=== PATIENT | female | born 1965 | race Caucasian/White ===

== ENCOUNTER 2024-10-08 12:33 | Outpatient (AMB) | payer BC, SELFPAY ==
--- NOTE | 2024-10-08 12:46 | MHC.OFFVIS ---
Vital Signs 10/08/24 12:47 Height 5 ft 9 in Weight 273 lb 6 oz BMI 40.4 BP 118/64 Blood Pressure Location Lt brachial Position Sitting Pulse 83 Pulse Source Pulse Oximeter Pulse Oximetry (%) 99 Oxygen Delivery Method Room Air Intake Visit Reasons: Arthritis Intake Note: Patient presents with right shoulder pain today. She states it's been going on for a year, had an injection in March. Allergies environmental allergies Allergy (Mild, Verified 10/08/24 12:51) sneezing, itchy, watery eyes Latex, Natural Rubber Allergy (Mild, Verified 10/08/24 12:51) Rash dust mites Allergy (Mild, Uncoded 10/08/24 12:51) Sneezing molds Allergy (Unknown, Uncoded 10/08/24 12:51) Unknown HPI HPI Arthritis: Details: She just completed physical [facility] for [facility]. She continues to have pain with ADLs. 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 She was also going to physical therapy for knee strengthening with benefit. She is taking Tylenol with minimal benefit. She was prescribed nabumetone from Dr. azar but it was ineffective. She reports that she has history of gastric sleeve surgery with prior EGD revealing lesions in the esophagus related to gastritis. [facility] Medical History (Updated 10/08/24 @ 13:21 by Brett Mckeon MD) delivery delivered Surgical History (Updated 10/08/24 @ 12:52 by Maggie Sanchez CMA) H/O: hysterectomy History of total right knee replacement History of total left knee replacement S/P gastric sleeve procedure S/P cholecystectomy H/O colonoscopy H/O hernia repair Family History (Updated 10/07/24 @ 15:35 by Maggie Sanchez CMA) Father Colon cancer Mother Osteoarthritis Sister Colon cancer Social History (Updated 10/07/24 @ 15:34 by Maggie Sanchez CMA) Household Members: Spouse and Children Alcohol intake: never Patient Tobacco Use Status: Never used Tobacco Review of Systems Const All systems reviewed & are unremarkable except as noted in HPI and below Physical Exam Vital Signs: Last Vital Signs Pulse 83 10/08/24 12:47 BP 118/64 10/08/24 12:47 Pulse Ox 99 10/08/24 12:47 Oxygen Delivery Method Room Air 10/08/24 12:47 BMI result Body Mass Index 40.4 Const Other: General: Comfortable Skin: No lesions seen MSK: Tenderness to palpate right shoulder with active abduction 90 degrees and limited full internal rotation and external rotation. She has shoulder abduction 100 degrees with passive range of motion and is able to internally rotate and externally rotate but with pain. Left shoulder has normal range of motion with no pain. No joint effusion present. Office Procedures AMB Joint Injection/Aspiration Joint Injection/Aspiration Details: Right shoulder joint Prep: site was prepped using aseptic technique Injected: 40 mg of, Kenalog, with 1 mL of and 1% plain lidocaine Procedure: The patient tolerated the procedure well. Postprocedure protocol was discussed with patient. Coding 80877 - Large joint Procedure code (CPT) selection complete Office Meds lidocaine (PF) 10 mg/mL (1 %) injection solution Performing Provider: Brett Mckeon MD Performing Location: [facility] Administered by: Brett Mckeon MD on 10/08/24 13:20 Dose Route Admin Location Dispensed Lot Number Expiration Date [facility] Supervisor Irrigation 10 mg Infiltration 2 mL [id number] [facility] Kenalog 40 mg/mL suspension for injection Performing Provider: Brett Mckeon MD Performing Location: [facility] Administered by: Brett Mckeon MD on 10/08/24 13:20 Dose Route Admin Location Dispensed Lot Number Expiration Date [facility] Supervisor Irrigation 40 mg intra-articular 1 mL [id number] [employer] Assessment & Plan Assessment & Plan (1) Right shoulder pain: Comment: Due to glenohumeral joint osteoarthritis. Recurrent. Last cortisone injection only lasted her 2 months. She has failed PT. she continues to have uncontrolled pain on Tylenol and with limited range of motion. She is willing to try intra-articular cortisone injection again. Code(s): M25.511 - Pain in right shoulder Category: Medical Qualifiers: Chronicity: chronic Qualified Code(s): M25.511 - Pain in right shoulder; G89.29 - Other chronic pain Plan: She received cortisone injection to right shoulder Avoid oral NSAIDs in setting of gastric sleeve surgery Continue Tylenol as needed Letter for work given to patient to excuse her this weekend We discussed modifying daily tasks and work-related tasks to reduce repetition including carrying objects for work Continue exercises learned from physical therapy daily Recommend considering swimming/aquatic therapy I ordered right shoulder x-ray to evaluate for joint pathology worsening Return to clinic in 3 months (2) Osteoarthritis of right glenohumeral joint: Code(s): M19.011 - Primary osteoarthritis, right shoulder Category: Medical Plan: See above Orders: Orders XR shoulder RT min 2V Today M25.511 - Pain in right shoulder AMB Joint Injection/Aspiration Today M19.011 - Primary osteoarthritis, right shoulder Medications: New lidocaine (PF) 10 mg Infiltration ONCE 1 mL 0RF M19.011 - Primary osteoarthritis, right shoulder Kenalog (triamcinolone acetonide) 40 mg intra-articular ONCE 1 mL 0RF NS M19.011 - Primary osteoarthritis, right shoulder Coding Level of Care Code Est Pt Level 3 (01150) Complex EM visit Add On G2211 Diagnoses Chronic right shoulder pain M25.511; G89.29 Chronicity: chronic Osteoarthritis of right glenohumeral joint M19.011 CPT Codes Coding - 01223 Large joint: 22968 - Large joint ([id number])
[2024-10-08 12:47] VITALS: BP 118/64; PULSE 83; O2SAT 99; BMI 40.4
== END 2024-10-08 13:18 | disposition home or self-care (01) ==
PROVIDERS: Visit Provider Internal Medicine Rheumatology
DX: M25.511 Pain in right shoulder (principal); G89.29 Other chronic pain; M19.011 Primary osteoarthritis, right shoulder
CPT/HCPCS: 20610; 99213

== ENCOUNTER → 2024-10-08 12:33 | Outpatient (BNVA) | payer BC, SELFPAY | PROVIDERS: Visit Provider Internal Medicine Rheumatology | DX: M25.511 Pain in right shoulder (principal); G89.29 Other chronic pain; M19.011 Primary osteoarthritis, right shoulder | CPT/HCPCS: 20610; J2003; J3300 ==

== ENCOUNTER 2024-10-11 16:46 | Outpatient (REF) | payer BC, SELFPAY ==
--- NOTE | ~2024-10-11 | XR_ITS ---
EXAMINATION: XR SHOULDER 2 OR MORE VIEWS RIGHT HISTORY: M25.511 - Pain in right shoulder COMPARISON: There are no prior studies available for comparison. FINDINGS: Six views of the right shoulder are submitted. Osseous mineralization is normal. There is no fracture or dislocation. The glenohumeral joint is maintained. There is moderate osteoarthritis of the AC joint, with joint space narrowing and osteophyte formation. There is a calcified granuloma in the right upper lobe. XR/XR shoulder RT min 2V IMPRESSION: Moderate osteoarthritis of the AC joint. Electronically signed by: Hi Garcia MD 10/14/2024 08:55 AM [facility]
--- OUTSIDE RECORDS SUMMARY | 2024-10-11 16:51 | XMS_ITS ---
Author Organization [facility] Address [address] [place] [address] Care Team Providers Care Print Graphic Designer Name Role Phone LASHAWN SMALLS Unavailable [phone] KEENAN MEDINA [phone] Encounters Encounter Location Date Provider Diagnosis [facility] [address] [place] [address] 10/10/2024 KEENAN MEDINA PLAN OF TREATMENT Next Appt Details Provider Name:LASHAWN SLIM, 10/31/2024 10:45:00 AM, [address], [place], [address], Progress Notes * FERNANDA WEBBOB:[birth year] (59 yo F)Acc No.[id number]:10/10/2024 Patient:??FERNANDA WEBB Provider:??Keenan Medina MD :1965?Age:59 Y?Sex:Fe male Date:10/10/2024 Address:[address] [place], [place] [phone] Subjective: * Chief Complaints: * ? * Medical History:?? Objective: Assessment: Plan: * Treatment: * Images: Billing Information: * Visit Code:?? * Procedure Codes:?? * Sign off status: Pending * Provider:??Keenan Medina MD Date:??10/10
--- OUTSIDE RECORDS SUMMARY | 2024-10-11 16:52 | XMS_ITS | Encounter Summary ---
Author Organization [facility] Address [address] [place] [address] Care Team Providers Care Absorption Plant Operator Helper Name Role Phone Rae Medina MD Primary Care Provider [phone] Encounter Details Date Type Department Care Team (Late st Contact Info) Description 10/10/2024 Telephone Bariatric Surgery - [place] [address] [address] Shireen Foreman, RN Social History Tobacco Use Types Packs/Day Years Used Date Smoking Tobacco: Never Smokeless Tobacco: Never Alcohol Use Standard Drinks/Week Comments No 0 (1 standard drink = 0.6 oz pur e alcohol) Sex and Gender Information Value Date Recorded Sex Assigned at Not on file Gender Identity Not on file Sexual Orientation Not on file documented as of this encounter Progress Notes * Shireen Foreman RN - 10/10/2024 1:57 PM EST Called patient to ask if she ywould like to have an office visit with one of our providers. She hada sleeve gastrectomy 02/2020 and has not been seen in our office since 07/2023. Voicemail left asking patient to call us back if she wishes to schedule an office visit. documented in this encounter Plan of Treatment Upcoming Encounters Date Type Department Care Team (Late Contact Info) Description 01/07/2025 4:00 PM EDT Office Visit Bariatric Surgery [facility] [address] [address] Zohreh Griggs PA [address] [phone] documented as of this encounter Visit Diagnoses Not on filedocumented in this encounter Care Teams Absorption Plant Operator Helper Relationship Specialty Start Date End Date Rae Medina MD PCP - General Internal Medicine 11/26/20 documented as of this encounter
--- OUTSIDE RECORDS SUMMARY | 2024-10-11 16:52 | XMS_ITS ---
Author Organization [facility] Address [address] [place] [address] Care Team Providers Care Psych Social Worker Name Role Phone LASHAWN SMALLS Unavailable [phone] KEENAN MEDINA [phone] Encounters Encounter Location Date Provider Diagnosis [facility] [address] [place] [address] 10/03/2024 KEENAN MEDINA PLAN OF TREATMENT Next Appt Details Provider Name:LASHAWN SLIM, 10/31/2024 10:45:00 AM, [address], [place], [address], Progress Notes * FERNANDA WEBBOB:[birth year] (59 yo F)Acc No.[id number]:10/03/2024 Patient:??FERNANDA WEBB Provider:??Keenan Medina MD :1965?Age:59 Y?Sex:Fe male Date:10/03/2024 Address:[address] [place], [place] [phone] Subjective: * Chief Complaints: * ? * Medical History:?? Objective: Assessment: Plan: * Treatment: * Images: Billing Information: * Visit Code:?? * Procedure Codes:?? * Sign off status: Pending * Provider:??Keenan Medina MD Date:??10/03
--- OUTSIDE RECORDS SUMMARY | 2024-10-11 16:52 | XMS_ITS | Clinical Summary ---
Author Organization [facility] Address [address] [place] [address] Care Team Providers Care Electric Track Switch Maintainer Name Role Phone Rae Medina MD Primary Care Provider [phone] Encounters Date Type Department Care Team Description 10/10/2024 Telephone Bariatric Surgery [address] [place] [address] Shireen Foreman RN from Last 3 Months Surgical History Surgery Date Site/Laterality Comments SECTION PROCEDURE: HISTORICAL CARPAL TUNNEL RELEASE PROCEDURE: HISTORICAL CARPAL TUNNEL REL CHOLECYSTECTOMY PROCEDURE: HISTORICAL CHOLECYSTECTOMY OTHER SURGICAL HISTORY PROCEDURE: HISTORY OTHER; COMMENT: core biopsy COLONOSCOPY 01/03/2019 PROCEDURE: HISTORICAL COLONOSCOPY COLONOSCOPY 10/22/2015 PROCEDURE: HISTORICAL COLONOSCOPY; COMMENT: Colon cancer ion first degree relatives ESOPHAGOGASTRODUODENOSCOPY 01/03/2019 PROCEDURE: MD ESOPHAGOGASTRODUODENOSCOPY TRANSORAL DIAGNOSTIC OTHER SURGICAL HISTORY PROCEDURE: HISTORY OTHER; COMMENT: REPAIR INCISIONAL HERNIA KNEE SURGERY 01/11/2021 Left PROCEDURE: HISTORICAL KNEE SURGERY Medical History Medical History Date Comments Asthma DX:Asthma Hyperlipidemia 03/14/2019 DX:Hyperlipidemi a Allergic rhinitis 03/14/2019 DX:Allergic rh initis Anxiety and depression 03/14/2019 DX:Anxiet y and depression Class 3 severe obesity due t o excess calories with serious comorbidity and body mass index (BMI) of 50.0 to 59.9 in adult ([facility]) 03/07/2019 DX:Class 3 severe obesity du e to excess calories with serious comorbidity and body mass index (BMI) of 50.0 to 59.9 in adult ([facility]) GERD (gastroesophageal reflux disease) 03/14/2019 DX:GERD (gastroesophageal reflux disease) Osteoarthritis of knees, bilateral 03/14/2019 DX:Osteoarthritis of knees, bilateral Pre-diabetes 03/14/2019 DX:Pre-diabetes Change in bowel habits 03/14/2019 DX:Change in bowel habits; COMMENT: 11/2018. Normal colonoscopy Family History Medical History Relation Name Comments Alzheimer's disease Father Colon cancer Father Other: Other Father Other: heart disease Mother FRANCOIS disease Other Hypertension, K nee pain Seizures Sister 1 Colon cancer Sister 2 Relation Name Status Comments Father Mother Other Sister 1 Sister 2 Social History Tobacco Use Types Packs/Day Years Used Date Smoking Tobacco: Never Smokeless Tobacco: Never Alcohol Use Standard Drinks/Week Comments No 0 (1 standard drink = 0.6 oz pur e alcohol) Sex and Gender Information Value Date Recorded Sex Assigned at Not on file Gender Identity Not on file Sexual Orientation Not on file Obstetrics History Last Filed Vital Signs Vital Sign Reading Time Taken Comments Blood Pressure 121/73 07/25/2023 8:10 AM EST Pulse 79 07/25/2023 8:10 AM EST Temperature - - Respiratory Rate - - Oxygen Saturation - - Inhaled Oxygen Concentration - - Weight 121 kg (266 lb 1 oz) 07/25/2023 8:[address] Height 170.2 cm (5' 7 ) 07/25/2023 8:10 AM EST Body Mass Index 41.67 07/25/2023 8:10 AM EST Plan of Treatment Upcoming Encounters Date Type Department Care Team (Late st Contact Info) Description 01/07/2025 4:00 PM EDT Office Visit Bariatric Surgery - [place] [address] [facility] [address] [place] [address] Zohreh Griggs PA 271 [facility] [address] [place] [address] Health Maintenance Due Date Last Done Comments Breast Cancer Screening 1965 Pneumococcal Vaccine: Pediat rics (0 to 5 Years) and At-Risk Patients (6 to 64 Years) (1 of 2 - PCV) 1970 DTaP,Tdap,and Td Vaccines (1 - Tdap) 1983 Cervical Cancer Screening: P ap Smear 1985 Zoster Vaccines (1 of 2) 2014 Cholesterol Screening (Lipid Panel) 08/27/2022 Colorectal Cancer Screening: Colonoscopy 08/27/2022 Depression Screening 08/27/2022 HIV Screening 08/27/2022 Hepatitis C Screening 08/27/2022 Social Influencers of Health Screening 08/27/2022 COVID-19 Vaccine (1 - 2023-2 5 season) 2024 Influenza Vaccine (#1) 2024 RSV Immunization Patients 60 + Years Old (1 - Risk 60-74 years 1-dose series) 2024 HIB Vaccines Aged Out No longer eligi ble based on patient's age to complete this topic HPV Vaccines Aged Out No longer eligi ble based on patient's age to complete this topic Hepatitis A Vaccines Aged Out No long er eligible based on patient's age to complete this topic Hepatitis B Vaccines Aged Out No long er eligible based on patient's age to complete this topic IPV Vaccines Aged Out No longer eligi ble based on patient's age to complete this topic MMR Vaccines Aged Out No longer eligi ble based on patient's age to complete this topic Meningococcal ACWY Vaccine Aged Out N o longer eligible based on patient's age to complete this topic RSV Immunization Patients Un fiona 20 months Aged Out No longer eligible b ased on patient's age to complete this topic Varicella Vaccines Aged Out No longer eligible based on patient's age to complete this topic Care Teams Electric Track Switch Maintainer Relationship Specialty Start Date End Date Rae Medina MD PCP - General Internal Medicine 11/26/20
--- OUTSIDE RECORDS SUMMARY | 2024-10-11 16:52 | XMS_ITS ---
Author Organization [facility] Address [address] [place] [address] Care Team Providers Care Delivery Stock Clerk Name Role Phone LASHAWN SMALLS Unavailable [phone] MEDINAKEENAN STINSON Unavailable [phone] REASON FOR VISIT Patient is here for tirzepatide 5mg. Patient signed consent and left the office in stable condition MEDICATIONS Medication SIG (Take, Route, Frequency, Duration) Notes Start Date End Date Status Fish Oil 1000 MG 1 capsule Orally Onc e a day Active Nystatin 724686 UNIT/ML 4 mL Mouth/Throa t Four times a day for 14 days 12/21/2023 Active Fluconazole 100 MG 1 tablet Orally deni y for 10 days 12/21/2023 Active buPROPion HCl ER (XL) 300 mg TAKE 1 TABLET DAILY IN THE MORNING Active Montelukast Sodium 10 mg TAKE 1 TABLET DAILY Active Flonase Active DULoxetine HCl 20 mg TAKE 1 CAPSULE TWIC E A DAY Active Albuterol Sulfate (2.5 MG/3ML) 0.083% 3 mL Inhalation NEEDED for 30 days Active Pantoprazole Sodium 40 MG 1 tablet Orall y Once a day Active Tylenol Active Zepbound 5 MG/0.5ML 0.5 mL Subcutaneous weekly for 30 days 08/20/2024 Active Oseltamivir Phosphate 75 MG 1 capsule Or ally Twice a day for 5 days 09/20/2024 Active guaiFENesin ER 600 MG 1 tablet as needed Orally every 12 hrs for 10 days 09/20/2024 Active Benzonatate 200 MG 1 cap Orally Three t imes a day for 10 days 09/20/2024 Active Triamcinolone Acetonide 0.025 % 1 application Externally TWICE DAILY for 30 days 08/20/2024 Active Nabumetone 500 MG Oral for 45 Days Active Encounters Encounter Location Date Provider Diagnosis [facility] [address] [place] [address] 09/26/2024 KEENAN MEDINA PLAN OF TREATMENT Next Appt Details Provider Name:LASHAWN SMALLS, 10/31/2024 10:45:00 AM, [address], [place], [address], MEDICATIONS ADMINISTERED Medication Instructions Date of Administration Dosage Notes Tirzepatide 09/26/2024 5 mg Progress Notes * FERNANDA WEBBEDOB:[birth year] (59 yo F)Acc No.[id number]:09/26/2024 Patient:??FERNANDA WEBB Provider:??Keenan Medina MD :1965?Age:59 Y?Sex:Fe male Date:09/26/2024 Address:[address] [place], [place] [phone] Subjective: * Chief Complaints: * ?1. Patient is here for tirzepatide 5mg. Patient signed consent and left the office in stable condition. * Medical History:?? * Medications:??Taking Flonase , Taking Tylenol , Taking Pantoprazole Sodium 40 MG Tablet Delayed Release 1 tablet Orally Once a day , Taking Albuterol Sulfate (2.5 MG/3ML) 0.083% Nebulization Solution 3 mL Inhalation NEEDED , Taking DULoxetine HCl 20 mg Capsule Delayed Release Particles TAKE 1 CAPSULE TWICE A DAY , Taking Fluconazole 100 MG Tablet 1 tablet Orally daily , Taking Nystatin 787204 UNIT/ML Suspension 4 mL Mouth/Throat Four times a day , Taking Fish Oil 1000 MG Capsule 1 capsule Orally Once a day , Taking Montelukast Sodium 10 mg Tablet TAKE 1 TABLET DAILY , Taking buPROPion HCl ER (XL) 300 mg Tablet Extended Release 24 Hour TAKE 1 TABLET DAILY IN THE MORNING , Taking Nabumetone 500 MG Tablet Oral , Taking Zepbound 5 MG/0.5ML Solution Auto-injector 0.5 mL Subcutaneous weekly , Taking Triamcinolone Acetonide 0.025 % Cream 1 application Externally TWICE DAILY , Taking Benzonatate 200 MG Capsule 1 cap Orally Three times a day As needed cough, Taking guaiFENesin ER 600 MG Tablet Extended Release 12 Hour 1 tablet as needed Orally every 12 hrs , Taking Oseltamivir Phosphate 75 MG Capsule 1 capsule Orally Twice a day Objective: Assessment: Plan: * Treatment: * Therapeutic Injections:? Tirzepatide : 5 mg (Route: Subcutaneous) given by Oswaldo Salomon on subcutaneus * Images: Billing Information: * Visit Code:?? * Procedure Codes:?? * Sign off status: Pending * Provider:??Keenan Medina MD Date:??09/26
== END 2024-10-11 16:47 | disposition home or self-care (01) ==
LOC: HO.XRAY 16:46
PROVIDERS: Visit Provider Internal Medicine Rheumatology
DX: M25.511 Pain in right shoulder (principal)
CPT/HCPCS: 73030

== ENCOUNTER → 2024-10-11 16:52 | Outpatient (BNV) | payer BC, SELFPAY | PROVIDERS: Visit Provider Radiology Diagnostic Radiology | DX: M19.011 Primary osteoarthritis, right shoulder (principal) | CPT/HCPCS: 73030 ==

== ENCOUNTER 2025-01-07 12:37 | Outpatient (AMB) | payer BC, SELFPAY ==
--- NOTE | 2025-01-07 12:37 | A.OFFVIS_ITS ---
Vital Signs 01/07/25 12:38 Height 5 ft 9 in Weight 254 lb 10.142 oz BMI 37.6 BP 108/74 Blood Pressure Location Lt brachial Position Sitting Pulse 93 Pulse Source Pulse Oximeter Pulse Oximetry (%) 97 Oxygen Delivery Method Room Air Intake Visit Reasons: 3 mo follow up Intake Note: Patient presents with Arthritis. Accompanied by: Self / Same As Patient Allergies environmental allergies Allergy (Mild, Verified 01/07/25 12:38) sneezing, itchy, watery eyes Latex, Natural Rubber Allergy (Mild, Verified 01/07/25 12:38) Rash dust mites Allergy (Mild, Uncoded 10/08/24 12:51) Sneezing molds Allergy (Unknown, Uncoded 10/08/24 12:51) Unknown HPI HPI 3 mo follow up: Details: Pain resolved with us cortisone injection. She seems at the pool at least twice a week at the gym. She has not been consistent with PT exercises but when pain reoccur she does not exercise learned from PT in the past. She has been using less Tylenol. [facility] Medical History delivery delivered Surgical History H/O: hysterectomy History of total right knee replacement History of total left knee replacement S/P gastric sleeve procedure S/P cholecystectomy H/O colonoscopy H/O hernia repair Family History Father Colon cancer Mother Osteoarthritis Sister Colon cancer Social History Household Members: Spouse and Children Alcohol intake: never Patient Tobacco Use Status: Never used Tobacco Review of Systems Const All systems reviewed & are unremarkable except as noted in HPI and below Physical Exam Vital Signs: Last Vital Signs Pulse 93 01/07/25 12:38 BP 108/74 01/07/25 12:38 Pulse Ox 97 01/07/25 12:38 Oxygen Delivery Method Room Air 01/07/25 12:38 BMI result Body Mass Index 37.6 Const Other: General: Comfortable Skin: No lesions seen MSK: normal range of motion of bilateral shoulders. No tenderness on palpation. No joint effusion present. Assessment & Plan Assessment & Plan (1) Right shoulder pain: Comment: Due to glenohumeral joint osteoarthritis. Recurrent. Resolved with last cortisone injection. She has failed PT and Tylenol in the past. Code(s): M25.511 - Pain in right shoulder Category: Medical Qualifiers: Chronicity: chronic Qualified Code(s): M25.511 - Pain in right shoulder; G89.29 - Other chronic pain Plan: Avoid oral NSAIDs in setting of gastric sleeve surgery Continue Tylenol as needed Continue exercises learned from physical therapy daily and stretching before using the pool Return to clinic as needed. She will call office if pain returns for urgent appointment for cortisone injection (2) Osteoarthritis of right glenohumeral joint: Code(s): M19.011 - Primary osteoarthritis, right shoulder Category: Medical Plan: See above Coding Level of Care Code Est Pt Level 3 (57439) Complex EM visit Add On G2211 Diagnoses Chronic right shoulder pain M25.511; G89.29 Chronicity: chronic Osteoarthritis of right glenohumeral joint M19.011
[2025-01-07 12:38] VITALS: BP 108/74; PULSE 93; O2SAT 97; BMI 37.6
--- OUTSIDE RECORDS SUMMARY | 2025-01-07 14:58 | XMS_ITS ---
Author Organization [facility] Address [address] [place] [address] Care Team Providers Care Warrant Clerk Name Role Phone LASHAWN SMALLS Unavailable [phone] Encounters Encounter Location Date Provider Diagnosis [facility] [address] [place] [address] 10/31/2024 LASHAWN SMALLS PLAN OF TREATMENT No Information Progress Notes * FERNANDA WEBBOB:[birth year] (59 yo F)Acc No.[id number]:10/31/2024 Patient:??FERNANDA WEBB Provider:??LASHAWN SMALLS PA-C :1965?Age:59 Y?Sex:Fe male Date:10/31/2024 Address:[address] [place], [place] [phone] Subjective: * Chief Complaints: * ? * Medical History:?? Objective: Assessment: Plan: * Treatment: * Images: Billing Information: * Visit Code:?? * Procedure Codes:?? * Sign off status: Pending * Provider:??LASHAWN SMALLS PA-C Date:??
--- OUTSIDE RECORDS SUMMARY | 2025-01-07 14:58 | XMS_ITS ---
Author Organization [facility] Address [address] [place] [address] Care Team Providers Care Oil Field Roustabout Name Role Phone SLIMSCOTTY MannEN Unavailable [phone] KEENAN MEDINA [phone] Encounters Encounter Location Date Provider Diagnosis [facility] [address] [place] [address] 10/24/2024 KEENAN MEDINA PLAN OF TREATMENT No Information Progress Notes * FERNANDA WEBBEDOB:[birth year] (59 yo F)Acc No.[id number]:10/24/2024 Patient:??FERNANDA WEBB Shara Provider:??Keenan Medina MD :1965?Age:59 Y?Sex:Fe male Date:10/24/2024 Address:[address] [place], [place] [id number] Subjective: * Chief Complaints: * ? * Medical History:?? Objective: Assessment: Plan: * Treatment: * Images: Billing Information: * Visit Code:?? * Procedure Codes:?? * Sign off status: Pending * Provider:??Keenan Medina MD Date:??10/24
--- OUTSIDE RECORDS SUMMARY | 2025-01-07 14:59 | XMS_ITS | Patient Health Record ---
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 Prediabetes: 5.7 - 6.4 Diabetes: >6.4 Glycemic control for adults with diabetes: <7.0 Vitamin [id number] Reviewed date:08/19/2024 08:02:50 AM Interpretation: Performing Lab:[facility], [address] [facility], [place], Phone - [phone], Director - Delladry Notes/Report: Vitamin B12 963 675-8219 pg/mL Urinalysis, Complete-[id number] Reviewed date:08/19/2024 08:02:58 AM Interpretation: Performing Lab:[facility], [address] [place] [address], Phone - [phone], Director - MDJodry Notes/Report: Specific [place] 1.028 1.005-1.030 pH 5.5 5.0-7.5 Urine-Color Yellow Yellow Appearance Clear Clear WBC Esterase Negative Negative Protein Trace Negative/Trace Glucose Negative Negative Ketones Negative Negative Occult Blood Negative Negative Bilirubin Negative Negative Urobilinogen,Semi-Qn 1.0 0.2-1.0 mg/dL Nitrite, Urine Negative Negative Microscopic Examination Micr oscopic follows if indicated. Microscopic Examination See below: Micr oscopic was indicated and was performed. WBC None seen 0 - 5 /hpf RBC None seen 0 - 2 /hpf Epithelial Cells (non renal) 0-10 0 - 10 /hpf Epithelial Cells (renal) Casts None seen None seen /lpf Cast Type Crystals Crystal Type Mucus Threads Bacteria None seen None seen/Few Yeast Present None seen Trichomonas Comment CBC With Differential/Platel et-[id number] Reviewed date:08/19/2024 08:02:58 AM Interpretation: Performing Lab:[facility], [address] [facility], [place], Phone - [phone], Director - Isa Notes/Report: WBC 4.7 3.4-10.8 x10E3/uL Effective August 19, 2024 profile [id number] WBC will be made non-orderable as a stand-alone order code. RBC 4.40 3.77-5.28 x10E6/uL Hemoglobin 12.4 11.1-15.9 g/dL Hematocrit 39.3 34.0-46.6 % MCV 89 79-97 fL MCH 28.2 26.6-33.0 pg MCHC 31.6 31.5-35.7 g/dL RDW 13.1 11.7-15.4 % Platelets 233 150-450 x10E3/uL Neutrophils 64 Not Estab. % Lymphs 26 Not Estab. % Monocytes 6 Not Estab. % Eos 3 Not Estab. % Basos 1 Not Estab. % Immature Cells Neutrophils (Absolute) 3.0 1.4-7.0 x10E3/uL Lymphs (Absolute) 1.2 0.7-3.1 x10E3/uL Monocytes(Absolute) 0.3 0.1-0.9 x10E3/uL Eos (Absolute) 0.1 0.0-0.4 x10E3/uL Baso (Absolute) 0.0 0.0-0.2 x10E3/uL Immature Granulocytes 0 Not Estab. % Immature Grans (Abs) 0.0 0.0-0.1 x10E3/uL NRBC Hematology Comments: Vitamin D, [id number] Reviewed date:08/19/2024 08:02:50 AM Interpretation: Performing Lab:[facility] [place], [address] [facility], [place], Phone - [phone], Director - Isa Notes/Report: Vitamin D, 25-Hydroxy 32.5 30.0-100.0 ng/mL Vitamin D deficiency has been defined by the [place] of [employer] and an Endocrine Society practice guideline as a level of serum 25-OH vitamin D less than 20 ng/mL (1,2). The Endocrine Society went on to further define vitamin D insufficiency as a level between 21 and 29 ng/mL (2). 1. IOM ([place] of [employer]). 2010. Dietary reference intakes for calcium and D. [place]: The National Academies Press. 2. Fiordaliza MF, Paige BLACK, Lakeshia BARNES, et al. Evaluation, treatment, and prevention of vitamin D deficiency: an Endocrine Society clinical practice guideline. JCEM. 2010; 96(7):1911-30. Lipid Panel-[id number] Reviewed date:08/19/2024 08:02:50 AM Interpretation: Performing Lab:[facility], [address] [facility], Phone - [phone], Director - Isa Notes/Report: Cholesterol, Total 207 100-199 mg/dL Triglycerides 134 0-149 mg/dL HDL Cholesterol 53 >39 mg/dL VLDL Cholesterol Joao 24 5-40 mg/dL LDL Chol Calc ([facility]) 130 0-99 mg/dL LDL Calc Comment: Comp. Metabolic Panel (14)-3 [id number] Reviewed date:08/19/2024 08:02:58 AM Interpretation: Performing Lab:[facility], [address] [facility], [place], Phone - [phone], Director - Isa Notes/Report: Glucose 88 70-99 mg/dL BUN 14 6-24 mg/dL Creatinine 0.72 0.57-1.00 mg/dL eGFR 96 >59 mL/min/1.73 BUN/Creatinine Ratio 19 9-23 Sodium 143 134-144 mmol/L Potassium 4.7 3.5-5.2 mmol/L Chloride 104 96-106 mmol/L Carbon Dioxide, Total 25 20-29 mmol/L Calcium 9.0 8.7-10.2 mg/dL Protein, Total 6.0 6.0-8.5 g/dL Albumin 4.2 3.8-4.9 g/dL Globulin, Total 1.8 1.5-4.5 g/dL Bilirubin, Total 0.3 0.0-1.2 mg/dL Alkaline Phosphatase 132 44-121 IU/L AST (SGOT) 17 0-40 IU/L ALT (SGPT) 14 0-32 IU/L TSH Rfx on Abnormal to Free [id number] Reviewed date:08/19/2024 08:02:50 AM Interpretation: Performing Lab:[facility], [address], [place], Phone - [phone], Director - Isa Notes/Report: TSH 1.270 0.450-4.500 uIU/mL REASON FOR REFERRAL No Information MEDICATIONS Medication SIG (Take, Route, Frequency, Duration) Notes Start Date End Date Status Fish Oil 1000 MG 1 capsule Orally Onc e a day Active Nystatin 160123 UNIT/ML 4 mL Mouth/Throa t Four times a day for 14 days 12/21/2023 Active Fluconazole 100 MG 1 tablet Orally deni y for 10 days 12/21/2023 Active Flonase Active Zepbound 5 MG/0.5ML 0.5 mL Subcutaneous weekly for 30 days 08/20/2024 Active Nabumetone 500 MG Oral for 45 Days Active buPROPion HCl ER (XL) 300 mg TAKE 1 TABLET DAILY IN THE MORNING Active Montelukast Sodium 10 mg TAKE 1 TABLET DAILY Active DULoxetine HCl 20 mg TAKE 1 CAPSULE TWIC E A DAY Active Oseltamivir Phosphate 75 MG 1 capsule Or ally Twice a day for 5 days 09/20/2024 Active Albuterol Sulfate (2.5 MG/3ML) 0.083% 3 mL Inhalation NEEDED for 30 days Active guaiFENesin ER 600 MG 1 tablet as needed Orally every 12 hrs for 10 days 09/20/2024 Active Pantoprazole Sodium 40 MG 1 tablet Orall y Once a day Active Benzonatate 200 MG 1 cap Orally Three t imes a day for 10 days 09/20/2024 Active Tylenol Active Triamcinolone Acetonide 0.025 % 1 application Externally TWICE DAILY for 30 days 08/20/2024 Active IMMUNIZATIONS Vaccine Route Administration Date Status Comme nts COVID 19 VACCINE IM Intramuscular 07/14/2023 Administered influenza IM Intramuscular 05/30/2023 Administered influenza IM Intramuscular 06/20/2024 Administered SHINGRIX IM Intramuscular 10/19/2023 Administered SOCIAL HISTORY Tobacco Use: Social History Observation Description Date Details (start date - stop date) Never Smoker NA - NA Sex Assigned At : Social History Observation Description Sex Assigned At Unknown Tobacco Use/Smoking Question Answer Notes Are you a nonsmoker Section Notes: Denies tobacco, ETOH, ilicit drugs Lives with and 18 y/o 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 Denies tobacco, ETOH, ilicit drugs Lives with and 18 y/o 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 Denies tobacco, ETOH, ilicit drugs Lives with and 18 y/o 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 Denies tobacco, ETOH, ilicit drugs Lives with and 18 y/o 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 Denies tobacco, ETOH, ilicit drugs Lives with and 18 y/o 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 Denies tobacco, ETOH, ilicit drugs Lives with and 18 y/o 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 Denies tobacco, ETOH, ilicit drugs Lives with and 18 y/o 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 Denies tobacco, ETOH, ilicit drugs Lives with and 18 y/o 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 Denies tobacco, ETOH, ilicit drugs Lives with and 18 y/o 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 Denies tobacco, ETOH, ilicit drugs Lives with and 18 y/o 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 Denies tobacco, ETOH, ilicit drugs Lives with and 18 y/o 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 PROBLEMS Problem Type ICD Code Onset Dates Problem Status W/U Status Risk SNOMED Code Notes Problem Vitamin B12 deficiency anemia, unspecified (D51.9) Active confirmed Vitamin B>12< deficiency anaemia (05214379) Problem Hypothyroidism, unspecified (E03.9) Active confirmed Hypothyroidism (46658921) Problem Vitamin D deficiency, unspecified (E55.9) Active confirmed 09657365 Problem Obesity, unspecified (E66.9) Active confirmed Obesity (698328639) Problem Hyperlipidemia, unspecified (E78.5) Active confirmed Hyperlipidemia (12634117) Problem Insomnia due to other mental disorder (F51.05) Active confirmed Insomnia d isorder related to another mental disorder (20269264) Problem Osteoarthritis of knee, unspecified (M17.9) Active confirmed Osteoarthritis of knee (818601586) Problem Encounter for screening for diabetes mellitus (Z13.1) Active confirmed 124122956 Problem Encounter for screening for lipoid disorders (Z13.220) Active confirmed 977234343 Problem Morbid obesity (E66.01) Active confirmed Morbid obesity (645637436) Problem Hyperlipidemia, unspecified hyperlipidemia type (E78.5) Active confirmed 42554226 Problem Anxiety (F41.9) Active confirmed Anxiet y (02639544) Problem Dizziness (R42) Active confirmed 523689 003 Problem Depression, unspecified depression type (F32.9) Active confirmed Depressive disorder (disorder) (72888828) Problem Annual physical exam (Z00.00) Active confirmed 527387623 Problem Vitamin D deficiency (E55.9) Active confirmed Vitamin D deficiency (41883902) Problem BMI 40.0-44.9, adult (Z68.41) Active confirmed Body mass ind ex 40+ - morbidly obese (670206032) Problem Obesity (BMI 30-39.9) (E66.9) Active confirmed Obesity (114220270) Problem Body mass index [BMI] 32.0-32.9, adult (Z68.32) Active confirmed 512377049 Problem Dyslipidemia (E78.5) Active confirmed Dyslipidemia (815913590) Problem Asthma, unspecified asthma severity, unspecified whether complicated, unspecified whether persistent (J45.909) Active confirmed Asthma without status asthmaticus (97653296) Problem Benign paroxysmal positional vertigo, unspecified laterality (H81.10) Active confirmed 398980434 Problem Obesity, morbid, BMI 40.0-49.9 (E66.01) Active confirmed 675841676 Problem Anemia due to vitamin B12 deficiency, unspecified B12 deficiency type (D51.9) Active confirmed Vitamin B>12< deficiency anaemia (87031242) Problem BMI 31.0-31.9,adult (Z68.31) Active confirmed Body mass index 30.00 to 34.99 (418539362344198) Problem Hyperlipidemia (E78.5) Active confirmed Hyperlipidemia (98024069) VITAL SIGNS Heart Rate 115 /min 09/20/2024 Blood pressure diastolic 78 mm Hg 09/20/2024 Oximetry 95 % 09/20/2024 Height 68 in 09/20/2024 Blood pressure systolic 126 mm Hg 09/20/2024 Weight 267.3 lbs 09/20/2024 BMI 40.64 kg/m2 09/20/2024 Encounters Encounter Location Date Provider Diagnosis [facility] [address] [place] [address] 01/22/[address] [facility] [address] [place] [address] 04/25/[address] [facility] [address] [place] [address] 05/02/[address] [facility] [address] [place] [address] 05/09/[address] [facility] [address] [place] [address] 05/16/[address] [facility] [address] [place] [address] 05/23/[address] [facility] [address] [place] [address] 05/30/[address] [facility] [address] [place] [address] 06/06/[address] [facility] [address] [place] [address] 06/14/[address] [facility] [address] [place] [address] 06/27/[address] [facility] [address] [place] [address] 07/04/[address] [facility] [address] [place] [address] 07/11/[address] [facility] [address] [place] [address] 07/18/[address] [facility] [address] [place] [address] 07/25/[address] [facility] [address] [place] [address] 08/01/[address] [facility] [address] [place] [address] 08/01/[address] [facility] [address] [place] [address] 08/08/[address] [facility] [address] [place] [address] 08/14/[address] [facility] [address] [place] [address] 08/27/[address] [facility] [address] [place] [address] 09/03/[address] [facility] [address] [place] [address] 09/12/[address] [facility] [address] [place] [address] 09/17/[address] [facility] [address] [place] [address] 09/26/[address] [facility] [address] [place] [address] 10/03/[address] [facility] [address] [place] [address] 10/10/[address] [facility] [address] [place] [address] 10/17/[address] [facility] [address] [place] [address] 10/24/[address] [facility] [address] [place] [address] 10/31/[address] [facility] [address] [place] [address] 04/08/2024 LASHAWN SMALLS Morbid obesity E66.0 1 ; BMI 40.0-44.9, adult Z68.41 ; Hyperlipidemia, unspecified E78.5 ; Asthma, unspecified asthma severity, unspecified whether complicated, unspecified whether persistent J45.909 and Dietary counseling and surveillance Z71.[address] [facility] [address] [place] [address] 05/14/2024 LASHAWN SMALLS Morbid obesity E66.0 1 ; BMI 40.0-44.9, adult Z68.41 ; Hyperlipidemia, unspecified E78.5 ; Asthma, unspecified asthma severity, unspecified whether complicated, unspecified whether persistent J45.909 and Dietary counseling and surveillance Z71.3 [facility] [address] [place] [address] 06/20/2024 LASHAWN SMALLS Morbid obesity E66.0 1 ; BMI 40.0-44.9, adult Z68.41 ; Hyperlipidemia, unspecified E78.5 ; Asthma, unspecified asthma severity, unspecified whether complicated, unspecified whether persistent J45.909 ; Dietary counseling and surveillance Z71.3 and Encounter for immunization Z23 [facility] [address] [place] [address] 08/20/2024 LASHAWN SMALLS Adult general medica l exam Z00.00 ; Hyperlipidemia, unspecified E78.5 ; BMI 40.0-44.9, adult Z68.41 ; Osteoarthritis of knee, unspecified M17.9 and Eczema, unspecified type L30.[address] [address] 09/20/2024 LASHAWN SMALLS Close exposure to 2019-nCoV Z20.822 ; Influenza A J10.1 ; Hyperlipidemia, unspecified E78.5 ; BMI 40.0-44.9, adult Z68.41 ; Osteoarthritis of knee, unspecified M17.9 ; Eczema, unspecified type L30.9 ; Dietary counseling Z71.3 ; Obesity, morbid, BMI 40.0-49.9 E66.01 and Cough, unspecified type R05.[address] [address] 04/05/2024 LASHAWN SMALLS [address] [address] 04/25/2024 LASHAWN SMALLS [facility] [address] [place] [address] 06/20/2024 LASHAWN SMALLS Annual physical exam Z00.00 ; Hyperlipidemia, unspecified E78.5 ; Vitamin D deficiency E55.9 ; Hypothyroidism, unspecified E03.9 ; Encounter for screening for diabetes mellitus Z13.1 and Anemia due to vitamin B12 deficiency, unspecified B12 deficiency type D51.9 [address] [address] 09/20/2024 LASHAWN SMALLS ASSESSMENTS Encounter Date Diagnosis Assessment Notes Treatment Notes Treatment Clinical Notes Section Notes 04/08/2024 Morbid obesity (ICD-10 - E66.01) # Obesity. Pt has gained 40 lb over the past year. Patient is interested in weight loss medication. We have never done a weight consult. Discussed that we need to do a weight consult however in the meantime, we will try submission for Zepbound. Discussed administration and demonstration was showed on how to administer. Storage options including in the fridge. Explained how medication works. Patient is agreeable. If this is not covered, we will try Wegovy.Do not restart until about 2 weeks postsurgery. Patient is also fasting for Ramadan. I recommend that she restarts when she is able to increase her protein intake and do enough water. Patient has pain gec-[id number]-akwpxz, we did discuss compounded tears appetite. Protein goals at least 100 g a day as well as our water goal of 80 ounces a day. ASHLEE injection was explained to the patient. All questions answered to patient's satisfaction. Patient has no history of thyroid cancer. Discussed mechanism of action of the medications. Patient understands and all patients answered to satisfaction of the patient. 04/08/24: BMI 41, Weight 274. Body composition scale shows gain of 6 lb of muscle nad more water retention. Restarted Zepbound 2.5 mg subu cweekly. Will do in office tirzapetide until OOP and coupon for Zepbound are equivalent . H. Patient will follow up in (4) weeks for weight management Total time spent today was 30 minutes of which greater than 50% was spent on coordinating and counseling Case discussed with collaborating physician Yadira Medina who reviewed the assessment and plan. Chart, medications, labs, vital signs reviewed. Dictation was accomplished with the use of etrigg voice recognition software, prone to medical misidentifications and grammatical errors. This is unintentional and the practitioner does try to identify and correct these, but some could still be present. Please do not hesitate to contact practitioner for clarification. All questions answered to patients satisfaction. Patient verbalized understanding of diagnosis and treatments explained. To call sooner prior to next visit it any questions/concerns arise. 04/08/2024 BMI 40.0-44.9, adult (ICD-10 - Z68.41) # Obesity. Pt has gained 40 lb over the past year. Patient is interested in weight loss medication. We have never done a weight consult. Discussed that we need to do a weight consult however in the meantime, we will try submission for Zepbound. Discussed administration and demonstration was showed on how to administer. Storage options including in the fridge. Explained how medication works. Patient is agreeable. If this is not covered, we will try Wegovy.Do not restart until about 2 weeks postsurgery. Patient is also fasting for Ramadan. I recommend that she restarts when she is able to increase her protein intake and do enough water. Patient has pain pbu-aq-dcmkwg, we did discuss compounded tears appetite. Protein goals at least 100 g a day as well as our water goal of 80 ounces a day. ASHLEE injection was explained to the patient. All questions answered to patient's satisfaction. Patient has no history of thyroid cancer. Discussed mechanism of action of the medications. Patient understands and all patients answered to satisfaction of the patient. 04/08/24: BMI 41, Weight 274. Body composition scale shows gain of 6 lb of muscle nad more water retention. Restarted Zepbound 2.5 mg subu cweekly. Will do in office tirzapetide until OOP and coupon for Zepbound are equivalent . H. Patient will follow up in (4) weeks for weight management Total time spent today was 30 minutes of which greater than 50% was spent on coordinating and counseling Case discussed with collaborating physician Yadira Medina who reviewed the assessment and plan. Chart, medications, labs, vital signs reviewed. Dictation was accomplished with the use of etrigg voice recognition software, prone to medical misidentifications and grammatical errors. This is unintentional and the practitioner does try to identify and correct these, but some could still be present. Please do not hesitate to contact practitioner for clarification. All questions answered to patients satisfaction. Patient verbalized understanding of diagnosis and treatments explained. To call sooner prior to next visit it any questions/concerns arise. 05/14/2024 Morbid obesity (ICD-10 - E66.01) # Obesity. Pt has gained 40 lb over the past year. Patient is interested in weight loss medication. We have never done a weight consult. Discussed that we need to do a weight consult however in the meantime, we will try submission for Zepbound. Discussed administration and demonstration was showed on how to administer. Storage options including in the fridge. Explained how medication works. Patient is agreeable. If this is not covered, we will try Wegovy.Do not restart until about 2 weeks postsurgery. Patient is also fasting for Ramadan. I recommend that she restarts when she is able to increase her protein intake and do enough water. Patient has pain yvi-rp-tzefiz, we did discuss compounded tears appetite. Protein goals at least 100 g a day as well as our water goal of 80 ounces a day. ASHLEE injection was explained to the patient. All questions answered to patient's satisfaction. Patient has no history of thyroid cancer. Discussed mechanism of action of the medications. Patient understands and all patients answered to satisfaction of the patient. 04/08/24: BMI 41, Weight 274. Body composition scale shows gain of 6 lb of muscle nad more water retention. Restarted Zepbound 2.5 mg subu cweekly. Will do in office tirzapetide until OOP and coupon for Zepbound are equivalent . 05/14/24: BMI 40, Weight 270 lb. On compounded tirzapetide. Doing well. mild nausea, controlled with zofran. Encouraged more water. SECA scale shows all fat loss. H. Patient will follow up in (4) weeks for weight management Total time spent today was 30 minutes of which greater than 50% was spent on coordinating and counseling Case discussed with collaborating physician Yadira Medina who reviewed the assessment and plan. Chart, medications, labs, vital signs reviewed. Dictation was accomplished with the use of etrigg voice recognition software, prone to medical misidentifications and grammatical errors. This is unintentional and the practitioner does try to identify and correct these, but some could still be present. Please do not hesitate to contact practitioner for clarification. All questions answered to patients satisfaction. Patient verbalized understanding of diagnosis and treatments explained. To call sooner prior to next visit it any questions/concerns arise. 05/14/2024 BMI 40.0-44.9, adult (ICD-10 - Z68.41) # Obesity. Pt has gained 40 lb over the past year. Patient is interested in weight loss medication. We have never done a weight consult. Discussed that we need to do a weight consult however in the meantime, we will try submission for Zepbound. Discussed administration and demonstration was showed on how to administer. Storage options including in the fridge. Explained how medication works. Patient is agreeable. If this is not covered, we will try Wegovy.Do not restart until about 2 weeks postsurgery. Patient is also fasting for Ramadan. I recommend that she restarts when she is able to increase her protein intake and do enough water. Patient has pain sgg-aq-ydbons, we did discuss compounded tears appetite. Protein goals at least 100 g a day as well as our water goal of 80 ounces a day. ASHLEE injection was explained to the patient. All questions answered to patient's satisfaction. Patient has no history of thyroid cancer. Discussed mechanism of action of the medications. Patient understands and all patients answered to satisfaction of the patient. 04/08/24: BMI 41, Weight 274. Body composition scale shows gain of 6 lb of muscle nad more water retention. Restarted Zepbound 2.5 mg subu cweekly. Will do in office tirzapetide until OOP and coupon for Zepbound are equivalent . 05/14/24: BMI 40, Weight 270 lb. On compounded tirzapetide. Doing well. mild nausea, controlled with zofran. Encouraged more water. SECA scale shows all fat loss. H. Patient will follow up in (4) weeks for weight management Total time spent today was 30 minutes of which greater than 50% was spent on coordinating and counseling Case discussed with collaborating physician Yadira Medina who reviewed the assessment and plan. Chart, medications, labs, vital signs reviewed. Dictation was accomplished with the use of etrigg voice recognition software, prone to medical misidentifications and grammatical errors. This is unintentional and the practitioner does try to identify and correct these, but some could still be present. Please do not hesitate to contact practitioner for clarification. All questions answered to patients satisfaction. Patient verbalized understanding of diagnosis and treatments explained. To call sooner prior to next visit it any questions/concerns arise. 06/20/2024 Morbid obesity (ICD-10 - E66.01) # Obesity. Pt has gained 40 lb over the past year. Patient is interested in weight loss medication. We have never done a weight consult. Discussed that we need to do a weight consult however in the meantime, we will try submission for Zepbound. Discussed administration and demonstration was showed on how to administer. Storage options including in the fridge. Explained how medication works. Patient is agreeable. If this is not covered, we will try Wegovy.Do not restart until about 2 weeks postsurgery. Patient is also fasting for Ramadan. I recommend that she restarts when she is able to increase her protein intake and do enough water. Patient has pain [id number], we did discuss compounded tears appetite. Protein goals at least 100 g a day as well as our water goal of 80 ounces a day. ASHLEE injection was explained to the patient. All questions answered to patient's satisfaction. Patient has no history of thyroid cancer. Discussed mechanism of action of the medications. Patient understands and all patients answered to satisfaction of the patient. 04/08/24: BMI 41, Weight 274. Body composition scale shows gain of 6 lb of muscle nad more water retention. Restarted Zepbound 2.5 mg subu cweekly. Will do in office tirzapetide until OOP and coupon for Zepbound are equivalent . 05/14/24: BMI 40, Weight 270 lb. On compounded tirzapetide. Doing well. mild nausea, controlled with zofran. Encouraged more water. SECA scale shows all fat loss. 06/20/24: BMI 40, Weigh 264. Pt has not appetite on Tirzapetide 5 mg. Will go back to 2.5 mg for now. Discussed need for adequate protei intake. Body composition scale shows mix of fat and muscle loss. Discussed ways to get higher protein in. # Vaccine: Flu shot given today H. Patient will follow up in (4) weeks for weight management Total time spent today was 30 minutes of which greater than 50% was spent on coordinating and counseling Case discussed with collaborating physician Yadira Medina who reviewed the assessment and plan. Chart, medications, labs, vital signs reviewed. Dictation was accomplished with the use of etrigg voice recognition software, prone to medical misidentifications and grammatical errors. This is unintentional and the practitioner does try to identify and correct these, but some could still be present. Please do not hesitate to contact practitioner for clarification. All questions answered to patients satisfaction. Patient verbalized understanding of diagnosis and treatments explained. To call sooner prior to next visit it any questions/concerns arise. 06/20/2024 BMI 40.0-44.9, adult (ICD-10 - Z68.41) # Obesity. Pt has gained 40 lb over the past year. Patient is interested in weight loss medication. We have never done a weight consult. Discussed that we need to do a weight consult however in the meantime, we will try submission for Zepbound. Discussed administration and demonstration was showed on how to administer. Storage options including in the fridge. Explained how medication works. Patient is agreeable. If this is not covered, we will try Wegovy.Do not restart until about 2 weeks postsurgery. Patient is also fasting for Ramadan. I recommend that she restarts when she is able to increase her protein intake and do enough water. Patient has pain [id number], we did discuss compounded tears appetite. Protein goals at least 100 g a day as well as our water goal of 80 ounces a day. ASHLEE injection was explained to the patient. All questions answered to patient's satisfaction. Patient has no history of thyroid cancer. Discussed mechanism of action of the medications. Patient understands and all patients answered to satisfaction of the patient. 04/08/24: BMI 41, Weight 274. Body composition scale shows gain of 6 lb of muscle nad more water retention. Restarted Zepbound 2.5 mg subu cweekly. Will do in office tirzapetide until OOP and coupon for Zepbound are equivalent . 05/14/24: BMI 40, Weight 270 lb. On compounded tirzapetide. Doing well. mild nausea, controlled with zofran. Encouraged more water. SECA scale shows all fat loss. 06/20/24: BMI 40, Weigh 264. Pt has not appetite on Tirzapetide 5 mg. Will go back to 2.5 mg for now. Discussed need for adequate protei intake. Body composition scale shows mix of fat and muscle loss. Discussed ways to get higher protein in. # Vaccine: Flu shot given today H. Patient will follow up in (4) weeks for weight management Total time spent today was 30 minutes of which greater than 50% was spent on coordinating and counseling Case discussed with collaborating physician Yadira Medina who reviewed the assessment and plan. Chart, medications, labs, vital signs reviewed. Dictation was accomplished with the use of etrigg voice recognition software, prone to medical misidentifications and grammatical errors. This is unintentional and the practitioner does try to identify and correct these, but some could still be present. Please do not hesitate to contact practitioner for clarification. All questions answered to patients satisfaction. Patient verbalized understanding of diagnosis and treatments explained. To call sooner prior to next visit it any questions/concerns arise. 06/20/2024 Annual physical exam (ICD-10 - Z00.00) 08/20/2024 Hyperlipidemia, unspecified (ICD-10 - E78.5) Fernanda is a pleasant 58 year old female with a past medical history of Seasonal allergies, Asthma, Depression, unspecified, Morbid (severe) obesity due to excess calories, and Hyperlipidemia, presenting to the clinic for a complete physical exam. # Asthma: Stable. Denies any coughing or shortness of breath. Currently taking Albuterol Sulfate (2.5 MG/3ML) 0.083% Nebulization as needed. # Depression: PHQ-9 score was greater than 10 at today's visit. In further discussion with Fernanda, she states that she has been feeling depressed, tired, and has suicidal ideations. She states this occurs every winter season due to strained relationship between her and her two older children, who she has very minimal contact with. She currently sees a therapist about 1-2 times per month but states that minimal improvement. She currently is taking duloxetine HCl 20 mg and bupropion HCl ER (XL) 300 mg. She states these medications are beneficial and is helping her at this time. She states that at this time she needs to get past the holidays and states that she will contact the office is she is in need of help or changes to her medications. Discussed the idea of trialing family therapy. Patient is considering the idea at this time. # Obesity. Pt has gained 40 lb over the past year. Patient is interested in weight loss medication. We have never done a weight consult. Discussed that we need to do a weight consult however in the meantime, we will try submission for Zepbound. Discussed administration and demonstration was showed on how to administer. Storage options including in the fridge. Explained how medication works. Patient is agreeable. If this is not covered, we will try Wegovy.Do not restart until about 2 weeks postsurgery. Patient is also fasting for Ramadan. I recommend that she restarts when she is able to increase her protein intake and do enough water. Patient has pain [id number], we did discuss compounded tears appetite. Protein goals at least 100 g a day as well as our water goal of 80 ounces a day. ASHLEE injection was explained to the patient. All questions answered to patient's satisfaction. Patient has no history of thyroid cancer. Discussed mechanism of action of the medications. Patient understands and all patients answered to satisfaction of the patient. 04/08/24: BMI 41, Weight 274. Body composition scale shows gain of 6 lb of muscle nad more water retention. Restarted Zepbound 2.5 mg subu cweekly. Will do in office tirzapetide until OOP and coupon for Zepbound are equivalent . 05/14/24: BMI 40, Weight 270 lb. On compounded tirzapetide. Doing well. mild nausea, controlled with zofran. Encouraged more water. SECA scale shows all fat loss. 06/20/24: BMI 40, Weigh 264. Pt has not appetite on Tirzapetide 5 mg. Will go back to 2.5 mg for now. Discussed need for adequate protei intake. Body composition scale shows mix of fat and muscle loss. Discussed ways to get higher protein in. 08/20/2024: BMI 41.96, weight: 276 lbs. Endorses that she currently takes Zepbound 2.5 mg, noting minimal side effects, but states she does have an increase in appetite. We discussed trialing Zepbound 5 mg again to help with weight loss as her previous weight was about 264 lbs and discussed concern of monitoring side effect symptoms such as decreased appetite, nausea, vomiting, or changes in bowel habits. Will trial Zepbound 5 mg. Will follow up in 4-6 weeks for weight management follow up. Had Zepbound 5 mg at today's visit. Patient consented to Zepbound 5 mg injection at todays visit. # Hyperlipidemia: LDL was elevated at 130. Discussed idea of a statin. Patient declined idea of statin at this time. She endorses trialing lifestyle modifications such as improving exercise and diet. She currently takes Fish Oil 1000 MG. # Right Shoulder Pain: States having stiffness and feeling overall weak. She states that she has a difficult time lifiting objects above her head due to the pain. She also states having numbness to right thumb. Discussed idea of MRI. She declines at this time. She states she was considering following up with arthritis center. She also states she will consider the idea of the MRI as she states she has a lot on her plate during the holiday's physically and mentally. # Unspecified rash. Upon Physical examination, there appears to be a dry appearing, erythmatous, flat lesion on the posterior aspect of the patient's neck. She states that this portion is itchy. Will trial Tramcinolone Acetonide cream to help with symptomatic relief. Patient agreed to medication. Patient seen and examined. Comprehensive discussion was done on the following. 1. Nutrition: It is important to follow a healthy diet based on lots of vegetables and legumes and good fat. Avoid processed food and processed carbohydrates. Learn to prepare your own meals. Learn to read labels and avoid high fructose corn syrup, processed chemicals added to increase shelf life and preprepared meals. Avoid fast foods. Learn to eat slowly and plan meals for a week. Try to count calories and be mindful off daily calorie intake. Get into the habit of keeping an eye on your weight by using an appropriate scale. Learn to log exercise and discussed fitness Apps like [employer] D[employer] which can help keep log off calories taken versus calories burned. Local food should be preferred. Discussed Dirty Dozen Versus Clean Fifteen. Discussed healthy supplements like fish oil, Tumeric, Curcumin, Melatonin, Resveratrol, Probiotics, Vitamin-D, Alpha-Lipoic acid, Vitamin-D and coconut oil. 2. It is important to exercise regularly. Is a good habit to walk at least 30-45 minutes a day. Gentle weightlifting with standard precautions to protect the back. Finding activity like cycling or hiking and get into the habit of engaging in it. Stretching before and after the exercises important. It is also important to contact me if there are any problems like shortness of breath, chest pain, back pain and joint or muscle pain associated with the exercise. 3. Discussed age appropriate screening guidelines. Colonoscopy needs to start at age 50 with stool for occult blood as appropriate. There is a new test that can test for genetic abnormalities in the stool sample. This would not replace a colonoscopy but could be used as a screening tool for patients who do not want a colonoscopy. We discussed the importance of early detection of colon cancer. 4. Discussed current guidelines with respect to breast examination, mammogram and pap smear for early detection of breast and cervical cancer. Patient advised to follow up with these appointments. 5. Discussed safe driving and no use of smart phone while driving 6. Age-appropriate immunizations were discussed. A tetanus booster is needed every 10 years. Flu vaccine is recommended every year just before the start of the flu season. Shingles vaccine is recommended after age 50 but not all insurances cover it.Pneumonia vaccine is given after age 65 unless there are certain comorbidities for which it is started earlier. 7. Diagnostic labs were discussed. These could include CBC CMP and lipids with fasting blood glucose and insulin levels. Vitamin D and hemoglobin A1c testing might be appropriate. Will follow up on 09/20/2024 for weight management follow up Total time spent today was 30 minutes of which greater than 50% was spent on coordinating and counseling Case discussed with collaborating physician Yadira Medina who reviewed the assessment and plan. Chart, medications, labs, vital signs reviewed. Dictation was accomplished with the use of etrigg voice recognition software, prone to medical misidentifications and grammatical errors. This is unintentional and the practitioner does try to identify and correct these, but some could still be present. Please do not hesitate to contact practitioner for clarification. All questions answered to patients satisfaction. Patient verbalized understanding of diagnosis and treatments explained. To call sooner prior to next visit it any questions/concerns arise. 08/20/2024 Adult general medical exam (ICD-10 - Z00.00) Fernanda is a pleasant 58 year old female with a past medical history of Seasonal allergies, Asthma, Depression, unspecified, Morbid (severe) obesity due to excess calories, and Hyperlipidemia, presenting to the clinic for a complete physical exam. # Asthma: Stable. Denies any coughing or shortness of breath. Currently taking Albuterol Sulfate (2.5 MG/3ML) 0.083% Nebulization as needed. # Depression: PHQ-9 score was greater than 10 at today's visit. In further discussion with Fernanda, she states that she has been feeling depressed, tired, and has suicidal ideations. She states this occurs every winter season due to strained relationship between her and her two older children, who she has very minimal contact with. She currently sees a therapist about 1-2 times per month but states that minimal improvement. She currently is taking duloxetine HCl 20 mg and bupropion HCl ER (XL) 300 mg. She states these medications are beneficial and is helping her at this time. She states that at this time she needs to get past the holidays and states that she will contact the office is she is in need of help or changes to her medications. Discussed the idea of trialing family therapy. Patient is considering the idea at this time. # Obesity. Pt has gained 40 lb over the past year. Patient is interested in weight loss medication. We have never done a weight consult. Discussed that we need to do a weight consult however in the meantime, we will try submission for Zepbound. Discussed administration and demonstration was showed on how to administer. Storage options including in the fridge. Explained how medication works. Patient is agreeable. If this is not covered, we will try Wegovy.Do not restart until about 2 weeks postsurgery. Patient is also fasting for Ramadan. I recommend that she restarts when she is able to increase her protein intake and do enough water. Patient has pain [id number], we did discuss compounded tears appetite. Protein goals at least 100 g a day as well as our water goal of 80 ounces a day. ASHLEE injection was explained to the patient. All questions answered to patient's satisfaction. Patient has no history of thyroid cancer. Discussed mechanism of action of the medications. Patient understands and all patients answered to satisfaction of the patient. 04/08/24: BMI 41, Weight 274. Body composition scale shows gain of 6 lb of muscle nad more water retention. Restarted Zepbound 2.5 mg danieleu macario. Will do in office tirzapetide until OOP and coupon for Zepbound are equivalent . 05/14/24: BMI 40, Weight 270 lb. On compounded tirzapetide. Doing well. mild nausea, controlled with zofran. Encouraged more water. SECA scale shows all fat loss. 06/20/24: BMI 40, Weigh 264. Pt has not appetite on Tirzapetide 5 mg. Will go back to 2.5 mg for now. Discussed need for adequate protei intake. Body composition scale shows mix of fat and muscle loss. Discussed ways to get higher protein in. 08/20/2024: BMI 41.96, weight: 276 lbs. Endorses that she currently takes Zepbound 2.5 mg, noting minimal side effects, but states she does have an increase in appetite. We discussed trialing Zepbound 5 mg again to help with weight loss as her previous weight was about 264 lbs and discussed concern of monitoring side effect symptoms such as decreased appetite, nausea, vomiting, or changes in bowel habits. Will trial Zepbound 5 mg. Will follow up in 4-6 weeks for weight management follow up. Had Zepbound 5 mg at today's visit. Patient consented to Zepbound 5 mg injection at todays visit. # Hyperlipidemia: LDL was elevated at 130. Discussed idea of a statin. Patient declined idea of statin at this time. She endorses trialing lifestyle modifications such as improving exercise and diet. She currently takes Fish Oil 1000 MG. # Right Shoulder Pain: States having stiffness and feeling overall weak. She states that she has a difficult time lifiting objects above her head due to the pain. She also states having numbness to right thumb. Discussed idea of MRI. She declines at this time. She states she was considering following up with arthritis center. She also states she will consider the idea of the MRI as she states she has a lot on her plate during the holiday's physically and mentally. # Unspecified rash. Upon Physical examination, there appears to be a dry appearing, erythmatous, flat lesion on the posterior aspect of the patient's neck. She states that this portion is itchy. Will trial Tramcinolone Acetonide cream to help with symptomatic relief. Patient agreed to medication. Patient seen and examined. Comprehensive discussion was done on the following. 1. Nutrition: It is important to follow a healthy diet based on lots of vegetables and legumes and good fat. Avoid processed food and processed carbohydrates. Learn to prepare your own meals. Learn to read labels and avoid high fructose corn syrup, processed chemicals added to increase shelf life and preprepared meals. Avoid fast foods. Learn to eat slowly and plan meals for a week. Try to count calories and be mindful off daily calorie intake. Get into the habit of keeping an eye on your weight by using an appropriate scale. Learn to log exercise and discussed fitness Apps like [employer] Drape which can help keep log off calories taken versus calories burned. Local food should be preferred. Discussed Dirty Dozen Versus Clean Fifteen. Discussed healthy supplements like fish oil, Tumeric, Curcumin, Melatonin, Resveratrol, Probiotics, Vitamin-D, Alpha-Lipoic acid, Vitamin-D and coconut oil. 2. It is important to exercise regularly. Is a good habit to walk at least 30-45 minutes a day. Gentle weightlifting with standard precautions to protect the back. Finding activity like cycling or hiking and get into the habit of engaging in it. Stretching before and after the exercises important. It is also important to contact me if there are any problems like shortness of breath, chest pain, back pain and joint or muscle pain associated with the exercise. 3. Discussed age appropriate screening guidelines. Colonoscopy needs to start at age 50 with stool for occult blood as appropriate. There is a new test that can test for genetic abnormalities in the stool sample. This would not replace a colonoscopy but could be used as a screening tool for patients who do not want a colonoscopy. We discussed the importance of early detection of colon cancer. 4. Discussed current guidelines with respect to breast examination, mammogram and pap smear for early detection of breast and cervical cancer. Patient advised to follow up with these appointments. 5. Discussed safe driving and no use of smart phone while driving 6. Age-appropriate immunizations were discussed. A tetanus booster is needed every 10 years. Flu vaccine is recommended every year just before the start of the flu season. Shingles vaccine is recommended after age 50 but not all insurances cover it.Pneumonia vaccine is given after age 65 unless there are certain comorbidities for which it is started earlier. 7. Diagnostic labs were discussed. These could include CBC CMP and lipids with fasting blood glucose and insulin levels. Vitamin D and hemoglobin A1c testing might be appropriate. Will follow up on 09/20/2024 for weight management follow up Total time spent today was 30 minutes of which greater than 50% was spent on coordinating and counseling Case discussed with collaborating physician Yadira Medina who reviewed the assessment and plan. Chart, medications, labs, vital signs reviewed. Dictation was accomplished with the use of etrigg voice recognition software, prone to medical misidentifications and grammatical errors. This is unintentional and the practitioner does try to identify and correct these, but some could still be present. Please do not hesitate to contact practitioner for clarification. All questions answered to patients satisfaction. Patient verbalized understanding of diagnosis and treatments explained. To call sooner prior to next visit it any questions/concerns arise. 09/20/2024 Close exposure to 2019-nCoV (ICD-10 - Z20.822) Fernanda is a pleasant 58 year old female with a past medical history of Seasonal allergies, Asthma, Depression, unspecified, Morbid (severe) obesity due to excess calories, and Hyperlipidemia # Influenza A. Tamiflu 75 mg po BID x 5 days. Discussed s/s of infuneza. Work note give. Hydration, rest and antipyretic control. # Asthma: Stable. Denies any coughing or shortness of breath. Currently taking Albuterol Sulfate (2.5 MG/3ML) 0.083% Nebulization as needed. # Depression: PHQ-9 score was greater than 10 at today's visit. In further discussion with Fernanda, she states that she has been feeling depressed, tired, and has suicidal ideations. She states this occurs every winter season due to strained relationship between her and her two older children, who she has very minimal contact with. She currently sees a therapist about 1-2 times per month but states that minimal improvement. She currently is taking duloxetine HCl 20 mg and bupropion HCl ER (XL) 300 mg. She states these medications are beneficial and is helping her at this time. She states that at this time she needs to get past the holidays and states that she will contact the office is she is in need of help or changes to her medications. Discussed the idea of trialing family therapy. Patient is considering the idea at this time. # Obesity. Pt has gained 40 lb over the past year. Patient is interested in weight loss medication. We have never done a weight consult. Discussed that we need to do a weight consult however in the meantime, we will try submission for Zepbound. Discussed administration and demonstration was showed on how to administer. Storage options including in the fridge. Explained how medication works. Patient is agreeable. If this is not covered, we will try Wegovy.Do not restart until about 2 weeks postsurgery. Patient is also fasting for Ramadan. I recommend that she restarts when she is able to increase her protein intake and do enough water. Patient has pain [id number], we did discuss compounded tears appetite. Protein goals at least 100 g a day as well as our water goal of 80 ounces a day. ASHLEE injection was explained to the patient. All questions answered to patient's satisfaction. Patient has no history of thyroid cancer. Discussed mechanism of action of the medications. Patient understands and all patients answered to satisfaction of the patient. 04/08/24: BMI 41, Weight 274. Body composition scale shows gain of 6 lb of muscle nad more water retention. Restarted Zepbound 2.5 mg subu cweekly. Will do in office tirzapetide until OOP and coupon for Zepbound are equivalent . 05/14/24: BMI 40, Weight 270 lb. On compounded tirzapetide. Doing well. mild nausea, controlled with zofran. Encouraged more water. SECA scale shows all fat loss. 06/20/24: BMI 40, Weigh 264. Pt has not appetite on Tirzapetide 5 mg. Will go back to 2.5 mg for now. Discussed need for adequate protei intake. Body composition scale shows mix of fat and muscle loss. Discussed ways to get higher protein in. 08/20/2024: BMI 41.96, weight: 276 lbs. Endorses that she currently takes Zepbound 2.5 mg, noting minimal side effects, but states she does have an increase in appetite. We discussed trialing Zepbound 5 mg again to help with weight loss as her previous weight was about 264 lbs and discussed concern of monitoring side effect symptoms such as decreased appetite, nausea, vomiting, or changes in bowel habits. Will trial Zepbound 5 mg. Will follow up in 4-6 weeks for weight management follow up. Had Zepbound 5 mg at today's visit. Patient consented to Zepbound 5 mg injection at todays visit. # Hyperlipidemia: LDL was elevated at 130. Discussed idea of a statin. Patient declined idea of statin at this time. She endorses trialing lifestyle modifications such as improving exercise and diet. She currently takes Fish Oil 1000 MG. Total time spent today was 30 minutes of which greater than 50% was spent on coordinating and counseling Case discussed with collaborating physician Yadira Medina who reviewed the assessment and plan. Chart, medications, labs, vital signs reviewed. Dictation was accomplished with the use of etrigg voice recognition software, prone to medical misidentifications and grammatical errors. This is unintentional and the practitioner does try to identify and correct these, but some could still be present. Please do not hesitate to contact practitioner for clarification. All questions answered to patients satisfaction. Patient verbalized understanding of diagnosis and treatments explained. To call sooner prior to next visit it any questions/concerns arise. 09/20/2024 Influenza A (ICD-10 - J10.1) Fernanda is a pleasant 58 year old female with a past medical history of Seasonal allergies, Asthma, Depression, unspecified, Morbid (severe) obesity due to excess calories, and Hyperlipidemia # Influenza A. Tamiflu 75 mg po BID x 5 days. Discussed s/s of infuneza. Work note give. Hydration, rest and antipyretic control. # Asthma: Stable. Denies any coughing or shortness of breath. Currently taking Albuterol Sulfate (2.5 MG/3ML) 0.083% Nebulization as needed. # Depression: PHQ-9 score was greater than 10 at today's visit. In further discussion with Fernanda, she states that she has been feeling depressed, tired, and has suicidal ideations. She states this occurs every winter season due to strained relationship between her and her two older children, who she has very minimal contact with. She currently sees a therapist about 1-2 times per month but states that minimal improvement. She currently is taking duloxetine HCl 20 mg and bupropion HCl ER (XL) 300 mg. She states these medications are beneficial and is helping her at this time. She states that at this time she needs to get past the holidays and states that she will contact the office is she is in need of help or changes to her medications. Discussed the idea of trialing family therapy. Patient is considering the idea at this time. # Obesity. Pt has gained 40 lb over the past year. Patient is interested in weight loss medication. We have never done a weight consult. Discussed that we need to do a weight consult however in the meantime, we will try submission for Zepbound. Discussed administration and demonstration was showed on how to administer. Storage options including in the fridge. Explained how medication works. Patient is agreeable. If this is not covered, we will try Wegovy.Do not restart until about 2 weeks postsurgery. Patient is also fasting for Ramadan. I recommend that she restarts when she is able to increase her protein intake and do enough water. Patient has pain [id number], we did discuss compounded tears appetite. Protein goals at least 100 g a day as well as our water goal of 80 ounces a day. ASHLEE injection was explained to the patient. All questions answered to patient's satisfaction. Patient has no history of thyroid cancer. Discussed mechanism of action of the medications. Patient understands and all patients answered to satisfaction of the patient. 04/08/24: BMI 41, Weight 274. Body composition scale shows gain of 6 lb of muscle nad more water retention. Restarted Zepbound 2.5 mg subu macario. Will do in office tirzapetide until OOP and coupon for Zepbound are equivalent . 05/14/24: BMI 40, Weight 270 lb. On compounded tirzapetide. Doing well. mild nausea, controlled with zofran. Encouraged more water. SECA scale shows all fat loss. 06/20/24: BMI 40, Weigh 264. Pt has not appetite on Tirzapetide 5 mg. Will go back to 2.5 mg for now. Discussed need for adequate protei intake. Body composition scale shows mix of fat and muscle loss. Discussed ways to get higher protein in. 08/20/2024: BMI 41.96, weight: 276 lbs. Endorses that she currently takes Zepbound 2.5 mg, noting minimal side effects, but states she does have an increase in appetite. We discussed trialing Zepbound 5 mg again to help with weight loss as her previous weight was about 264 lbs and discussed concern of monitoring side effect symptoms such as decreased appetite, nausea, vomiting, or changes in bowel habits. Will trial Zepbound 5 mg. Will follow up in 4-6 weeks for weight management follow up. Had Zepbound 5 mg at today's visit. Patient consented to Zepbound 5 mg injection at todays visit. # Hyperlipidemia: LDL was elevated at 130. Discussed idea of a statin. Patient declined idea of statin at this time. She endorses trialing lifestyle modifications such as improving exercise and diet. She currently takes Fish Oil 1000 MG. Total time spent today was 30 minutes of which greater than 50% was spent on coordinating and counseling Case discussed with collaborating physician Yadira Medina who reviewed the assessment and plan. Chart, medications, labs, vital signs reviewed. Dictation was accomplished with the use of etrigg voice recognition software, prone to medical misidentifications and grammatical errors. This is unintentional and the practitioner does try to identify and correct these, but some could still be present. Please do not hesitate to contact practitioner for clarification. All questions answered to patients satisfaction. Patient verbalized understanding of diagnosis and treatments explained. To call sooner prior to next visit it any questions/concerns arise. 08/20/2024 BMI 40.0-44.9, adult (ICD-10 - Z68.41) Fernanda is a pleasant 58 year old female with a past medical history of Seasonal allergies, Asthma, Depression, unspecified, Morbid (severe) obesity due to excess calories, and Hyperlipidemia, presenting to the clinic for a complete physical exam. # Asthma: Stable. Denies any coughing or shortness of breath. Currently taking Albuterol Sulfate (2.5 MG/3ML) 0.083% Nebulization as needed. # Depression: PHQ-9 score was greater than 10 at today's visit. In further discussion with Fernanda, she states that she has been feeling depressed, tired, and has suicidal ideations. She states this occurs every winter season due to strained relationship between her and her two older children, who she has very minimal contact with. She currently sees a therapist about 1-2 times per month but states that minimal improvement. She currently is taking duloxetine HCl 20 mg and bupropion HCl ER (XL) 300 mg. She states these medications are beneficial and is helping her at this time. She states that at this time she needs to get past the holidays and states that she will contact the office is she is in need of help or changes to her medications. Discussed the idea of trialing family therapy. Patient is considering the idea at this time. # Obesity. Pt has gained 40 lb over the past year. Patient is interested in weight loss medication. We have never done a weight consult. Discussed that we need to do a weight consult however in the meantime, we will try submission for Zepbound. Discussed administration and demonstration was showed on how to administer. Storage options including in the fridge. Explained how medication works. Patient is agreeable. If this is not covered, we will try Wegovy.Do not restart until about 2 weeks postsurgery. Patient is also fasting for Ramadan. I recommend that she restarts when she is able to increase her protein intake and do enough water. Patient has pain [id number], we did discuss compounded tears appetite. Protein goals at least 100 g a day as well as our water goal of 80 ounces a day. ASHLEE injection was explained to the patient. All questions answered to patient's satisfaction. Patient has no history of thyroid cancer. Discussed mechanism of action of the medications. Patient understands and all patients answered to satisfaction of the patient. 04/08/24: BMI 41, Weight 274. Body composition scale shows gain of 6 lb of muscle nad more water retention. Restarted Zepbound 2.5 mg subu cweeklsteven. Will do in office tirzapetide until OOP and coupon for Zepbound are equivalent . 05/14/24: BMI 40, Weight 270 lb. On compounded tirzapetide. Doing well. mild nausea, controlled with zofran. Encouraged more water. SECA scale shows all fat loss. 06/20/24: BMI 40, Weigh 264. Pt has not appetite on Tirzapetide 5 mg. Will go back to 2.5 mg for now. Discussed need for adequate protei intake. Body composition scale shows mix of fat and muscle loss. Discussed ways to get higher protein in. 08/20/2024: BMI 41.96, weight: 276 lbs. Endorses that she currently takes Zepbound 2.5 mg, noting minimal side effects, but states she does have an increase in appetite. We discussed trialing Zepbound 5 mg again to help with weight loss as her previous weight was about 264 lbs and discussed concern of monitoring side effect symptoms such as decreased appetite, nausea, vomiting, or changes in bowel habits. Will trial Zepbound 5 mg. Will follow up in 4-6 weeks for weight management follow up. Had Zepbound 5 mg at today's visit. Patient consented to Zepbound 5 mg injection at todays visit. # Hyperlipidemia: LDL was elevated at 130. Discussed idea of a statin. Patient declined idea of statin at this time. She endorses trialing lifestyle modifications such as improving exercise and diet. She currently takes Fish Oil 1000 MG. # Right Shoulder Pain: States having stiffness and feeling overall weak. She states that she has a difficult time lifiting objects above her head due to the pain. She also states having numbness to right thumb. Discussed idea of MRI. She declines at this time. She states she was considering following up with arthritis center. She also states she will consider the idea of the MRI as she states she has a lot on her plate during the holiday's physically and mentally. # Unspecified rash. Upon Physical examination, there appears to be a dry appearing, erythmatous, flat lesion on the posterior aspect of the patient's neck. She states that this portion is itchy. Will trial Tramcinolone Acetonide cream to help with symptomatic relief. Patient agreed to medication. Patient seen and examined. Comprehensive discussion was done on the following. 1. Nutrition: It is important to follow a healthy diet based on lots of vegetables and legumes and good fat. Avoid processed food and processed carbohydrates. Learn to prepare your own meals. Learn to read labels and avoid high fructose corn syrup, processed chemicals added to increase shelf life and preprepared meals. Avoid fast foods. Learn to eat slowly and plan meals for a week. Try to count calories and be mindful off daily calorie intake. Get into the habit of keeping an eye on your weight by using an appropriate scale. Learn to log exercise and discussed fitness Apps like [employer] which can help keep log off calories taken versus calories burned. Local food should be preferred. Discussed Dirty Dozen Versus Clean Fifteen. Discussed healthy supplements like fish oil, Tumeric, Curcumin, Melatonin, Resveratrol, Probiotics, Vitamin-D, Alpha-Lipoic acid, Vitamin-D and coconut oil. 2. It is important to exercise regularly. Is a good habit to walk at least 30-45 minutes a day. Gentle weightlifting with standard precautions to protect the back. Finding activity like cycling or hiking and get into the habit of engaging in it. Stretching before and after the exercises important. It is also important to contact me if there are any problems like shortness of breath, chest pain, back pain and joint or muscle pain associated with the exercise. 3. Discussed age appropriate screening guidelines. Colonoscopy needs to start at age 50 with stool for occult blood as appropriate. There is a new test that can test for genetic abnormalities in the stool sample. This would not replace a colonoscopy but could be used as a screening tool for patients who do not want a colonoscopy. We discussed the importance of early detection of colon cancer. 4. Discussed current guidelines with respect to breast examination, mammogram and pap smear for early detection of breast and cervical cancer. Patient advised to follow up with these appointments. 5. Discussed safe driving and no use of smart phone while driving 6. Age-appropriate immunizations were discussed. A tetanus booster is needed every 10 years. Flu vaccine is recommended every year just before the start of the flu season. Shingles vaccine is recommended after age 50 but not all insurances cover it.Pneumonia vaccine is given after age 65 unless there are certain comorbidities for which it is started earlier. 7. Diagnostic labs were discussed. These could include CBC CMP and lipids with fasting blood glucose and insulin levels. Vitamin D and hemoglobin A1c testing might be appropriate. Will follow up on 09/20/2024 for weight management follow up Total time spent today was 30 minutes of which greater than 50% was spent on coordinating and counseling Case discussed with collaborating physician Yadira Medina who reviewed the assessment and plan. Chart, medications, labs, vital signs reviewed. Dictation was accomplished with the use of etrigg voice recognition software, prone to medical misidentifications and grammatical errors. This is unintentional and the practitioner does try to identify and correct these, but some could still be present. Please do not hesitate to contact practitioner for clarification. All questions answered to patients satisfaction. Patient verbalized understanding of diagnosis and treatments explained. To call sooner prior to next visit it any questions/concerns arise. 09/20/2024 Hyperlipidemia, unspecified (ICD-10 - E78.5) Fernanda is a pleasant 58 year old female with a past medical history of Seasonal allergies, Asthma, Depression, unspecified, Morbid (severe) obesity due to excess calories, and Hyperlipidemia # Influenza A. Tamiflu 75 mg po BID x 5 days. Discussed s/s of infuneza. Work note give. Hydration, rest and antipyretic control. # Asthma: Stable. Denies any coughing or shortness of breath. Currently taking Albuterol Sulfate (2.5 MG/3ML) 0.083% Nebulization as needed. # Depression: PHQ-9 score was greater than 10 at today's visit. In further discussion with Fernanda, she states that she has been feeling depressed, tired, and has suicidal ideations. She states this occurs every winter season due to strained relationship between her and her two older children, who she has very minimal contact with. She currently sees a therapist about 1-2 times per month but states that minimal improvement. She currently is taking duloxetine HCl 20 mg and bupropion HCl ER (XL) 300 mg. She states these medications are beneficial and is helping her at this time. She states that at this time she needs to get past the holidays and states that she will contact the office is she is in need of help or changes to her medications. Discussed the idea of trialing family therapy. Patient is considering the idea at this time. # Obesity. Pt has gained 40 lb over the past year. Patient is interested in weight loss medication. We have never done a weight consult. Discussed that we need to do a weight consult however in the meantime, we will try submission for Zepbound. Discussed administration and demonstration was showed on how to administer. Storage options including in the fridge. Explained how medication works. Patient is agreeable. If this is not covered, we will try Wegovy.Do not restart until about 2 weeks postsurgery. Patient is also fasting for Ramadan. I recommend that she restarts when she is able to increase her protein intake and do enough water. Patient has pain [id number], we did discuss compounded tears appetite. Protein goals at least 100 g a day as well as our water goal of 80 ounces a day. ASHLEE injection was explained to the patient. All questions answered to patient's satisfaction. Patient has no history of thyroid cancer. Discussed mechanism of action of the medications. Patient understands and all patients answered to satisfaction of the patient. 04/08/24: BMI 41, Weight 274. Body composition scale shows gain of 6 lb of muscle nad more water retention. Restarted Zepbound 2.5 mg solange sorto. Will do in office tirzapetide until OOP and coupon for Zepbound are equivalent . 05/14/24: BMI 40, Weight 270 lb. On compounded tirzapetide. Doing well. mild nausea, controlled with zofran. Encouraged more water. SECA scale shows all fat loss. 06/20/24: BMI 40, Weigh 264. Pt has not appetite on Tirzapetide 5 mg. Will go back to 2.5 mg for now. Discussed need for adequate protei intake. Body composition scale shows mix of fat and muscle loss. Discussed ways to get higher protein in. 08/20/2024: BMI 41.96, weight: 276 lbs. Endorses that she currently takes Zepbound 2.5 mg, noting minimal side effects, but states she does have an increase in appetite. We discussed trialing Zepbound 5 mg again to help with weight loss as her previous weight was about 264 lbs and discussed concern of monitoring side effect symptoms such as decreased appetite, nausea, vomiting, or changes in bowel habits. Will trial Zepbound 5 mg. Will follow up in 4-6 weeks for weight management follow up. Had Zepbound 5 mg at today's visit. Patient consented to Zepbound 5 mg injection at todays visit. # Hyperlipidemia: LDL was elevated at 130. Discussed idea of a statin. Patient declined idea of statin at this time. She endorses trialing lifestyle modifications such as improving exercise and diet. She currently takes Fish Oil 1000 MG. Total time spent today was 30 minutes of which greater than 50% was spent on coordinating and counseling Case discussed with collaborating physician Yadira Medina who reviewed the assessment and plan. Chart, medications, labs, vital signs reviewed. Dictation was accomplished with the use of etrigg voice recognition software, prone to medical misidentifications and grammatical errors. This is unintentional and the practitioner does try to identify and correct these, but some could still be present. Please do not hesitate to contact practitioner for clarification. All questions answered to patients satisfaction. Patient verbalized understanding of diagnosis and treatments explained. To call sooner prior to next visit it any questions/concerns arise. 06/20/2024 Hyperlipidemia, unspecified (ICD-10 - E78.5) 05/14/2024 Hyperlipidemia, unspecified (ICD-10 - E78.5) # Obesity. Pt has gained 40 lb over the past year. Patient is interested in weight loss medication. We have never done a weight consult. Discussed that we need to do a weight consult however in the meantime, we will try submission for Zepbound. Discussed administration and demonstration was showed on how to administer. Storage options including in the fridge. Explained how medication works. Patient is agreeable. If this is not covered, we will try Wegovy.Do not restart until about 2 weeks postsurgery. Patient is also fasting for Ramadan. I recommend that she restarts when she is able to increase her protein intake and do enough water. Patient has pain [id number], we did discuss compounded tears appetite. Protein goals at least 100 g a day as well as our water goal of 80 ounces a day. ASHLEE injection was explained to the patient. All questions answered to patient's satisfaction. Patient has no history of thyroid cancer. Discussed mechanism of action of the medications. Patient understands and all patients answered to satisfaction of the patient. 04/08/24: BMI 41, Weight 274. Body composition scale shows gain of 6 lb of muscle nad more water retention. Restarted Zepbound 2.5 mg subu cweekly. Will do in office tirzapetide until OOP and coupon for Zepbound are equivalent . 05/14/24: BMI 40, Weight 270 lb. On compounded tirzapetide. Doing well. mild nausea, controlled with zofran. Encouraged more water. SECA scale shows all fat loss. H. Patient will follow up in (4) weeks for weight management Total time spent today was 30 minutes of which greater than 50% was spent on coordinating and counseling Case discussed with collaborating physician Yadira Medina who reviewed the assessment and plan. Chart, medications, labs, vital signs reviewed. Dictation was accomplished with the use of etrigg voice recognition software, prone to medical misidentifications and grammatical errors. This is unintentional and the practitioner does try to identify and correct these, but some could still be present. Please do not hesitate to contact practitioner for clarification. All questions answered to patients satisfaction. Patient verbalized understanding of diagnosis and treatments explained. To call sooner prior to next visit it any questions/concerns arise. 06/20/2024 Hyperlipidemia, unspecified (ICD-10 - E78.5) # Obesity. Pt has gained 40 lb over the past year. Patient is interested in weight loss medication. We have never done a weight consult. Discussed that we need to do a weight consult however in the meantime, we will try submission for Zepbound. Discussed administration and demonstration was showed on how to administer. Storage options including in the fridge. Explained how medication works. Patient is agreeable. If this is not covered, we will try Wegovy.Do not restart until about 2 weeks postsurgery. Patient is also fasting for Ramadan. I recommend that she restarts when she is able to increase her protein intake and do enough water. Patient has pain [id number], we did discuss compounded tears appetite. Protein goals at least 100 g a day as well as our water goal of 80 ounces a day. ASHLEE injection was explained to the patient. All questions answered to patient's satisfaction. Patient has no history of thyroid cancer. Discussed mechanism of action of the medications. Patient understands and all patients answered to satisfaction of the patient. 04/08/24: BMI 41, Weight 274. Body composition scale shows gain of 6 lb of muscle nad more water retention. Restarted Zepbound 2.5 mg subu cweekly. Will do in office tirzapetide until OOP and coupon for Zepbound are equivalent . 05/14/24: BMI 40, Weight 270 lb. On compounded tirzapetide. Doing well. mild nausea, controlled with zofran. Encouraged more water. SECA scale shows all fat loss. 06/20/24: BMI 40, Weigh 264. Pt has not appetite on Tirzapetide 5 mg. Will go back to 2.5 mg for now. Discussed need for adequate protei intake. Body composition scale shows mix of fat and muscle loss. Discussed ways to get higher protein in. # Vaccine: Flu shot given today H. Patient will follow up in (4) weeks for weight management Total time spent today was 30 minutes of which greater than 50% was spent on coordinating and counseling Case discussed with collaborating physician Yadira Medina who reviewed the assessment and plan. Chart, medications, labs, vital signs reviewed. Dictation was accomplished with the use of etrigg voice recognition software, prone to medical misidentifications and grammatical errors. This is unintentional and the practitioner does try to identify and correct these, but some could still be present. Please do not hesitate to contact practitioner for clarification. All questions answered to patients satisfaction. Patient verbalized understanding of diagnosis and treatments explained. To call sooner prior to next visit it any questions/concerns arise. 04/08/2024 Hyperlipidemia, unspecified (ICD-10 - E78.5) # Obesity. Pt has gained 40 lb over the past year. Patient is interested in weight loss medication. We have never done a weight consult. Discussed that we need to do a weight consult however in the meantime, we will try submission for Zepbound. Discussed administration and demonstration was showed on how to administer. Storage options including in the fridge. Explained how medication works. Patient is agreeable. If this is not covered, we will try Wegovy.Do not restart until about 2 weeks postsurgery. Patient is also fasting for Ramadan. I recommend that she restarts when she is able to increase her protein intake and do enough water. Patient has pain [id number], we did discuss compounded tears appetite. Protein goals at least 100 g a day as well as our water goal of 80 ounces a day. ASHLEE injection was explained to the patient. All questions answered to patient's satisfaction. Patient has no history of thyroid cancer. Discussed mechanism of action of the medications. Patient understands and all patients answered to satisfaction of the patient. 04/08/24: BMI 41, Weight 274. Body composition scale shows gain of 6 lb of muscle nad more water retention. Restarted Zepbound 2.5 mg subu cweekly. Will do in office tirzapetide until OOP and coupon for Zepbound are equivalent . H. Patient will follow up in (4) weeks for weight management Total time spent today was 30 minutes of which greater than 50% was spent on coordinating and counseling Case discussed with collaborating physician Yadira Medina who reviewed the assessment and plan. Chart, medications, labs, vital signs reviewed. Dictation was accomplished with the use of etrigg voice recognition software, prone to medical misidentifications and grammatical errors. This is unintentional and the practitioner does try to identify and correct these, but some could still be present. Please do not hesitate to contact practitioner for clarification. All questions answered to patients satisfaction. Patient verbalized understanding of diagnosis and treatments explained. To call sooner prior to next visit it any questions/concerns arise. 04/08/2024 Asthma, unspecified asthma severity, unspecified whether complicated, unspecified whether persistent (ICD-10 - J45.909) # Obesity. Pt has gained 40 lb over the past year. Patient is interested in weight loss medication. We have never done a weight consult. Discussed that we need to do a weight consult however in the meantime, we will try submission for Zepbound. Discussed administration and demonstration was showed on how to administer. Storage options including in the fridge. Explained how medication works. Patient is agreeable. If this is not covered, we will try Wegovy.Do not restart until about 2 weeks postsurgery. Patient is also fasting for Ramadan. I recommend that she restarts when she is able to increase her protein intake and do enough water. Patient has pain [id number], we did discuss compounded tears appetite. Protein goals at least 100 g a day as well as our water goal of 80 ounces a day. ASHLEE injection was explained to the patient. All questions answered to patient's satisfaction. Patient has no history of thyroid cancer. Discussed mechanism of action of the medications. Patient understands and all patients answered to satisfaction of the patient. 04/08/24: BMI 41, Weight 274. Body composition scale shows gain of 6 lb of muscle nad more water retention. Restarted Zepbound 2.5 mg subu cweekly. Will do in office tirzapetide until OOP and coupon for Zepbound are equivalent . H. Patient will follow up in (4) weeks for weight management Total time spent today was 30 minutes of which greater than 50% was spent on coordinating and counseling Case discussed with collaborating physician Yadira Medina who reviewed the assessment and plan. Chart, medications, labs, vital signs reviewed. Dictation was accomplished with the use of etrigg voice recognition software, prone to medical misidentifications and grammatical errors. This is unintentional and the practitioner does try to identify and correct these, but some could still be present. Please do not hesitate to contact practitioner for clarification. All questions answered to patients satisfaction. Patient verbalized understanding of diagnosis and treatments explained. To call sooner prior to next visit it any questions/concerns arise. 05/14/2024 Asthma, unspecified asthma severity, unspecified whether complicated, unspecified whether persistent (ICD-10 - J45.909) # Obesity. Pt has gained 40 lb over the past year. Patient is interested in weight loss medication. We have never done a weight consult. Discussed that we need to do a weight consult however in the meantime, we will try submission for Zepbound. Discussed administration and demonstration was showed on how to administer. Storage options including in the fridge. Explained how medication works. Patient is agreeable. If this is not covered, we will try Wegovy.Do not restart until about 2 weeks postsurgery. Patient is also fasting for Ramadan. I recommend that she restarts when she is able to increase her protein intake and do enough water. Patient has pain [id number], we did discuss compounded tears appetite. Protein goals at least 100 g a day as well as our water goal of 80 ounces a day. ASHLEE injection was explained to the patient. All questions answered to patient's satisfaction. Patient has no history of thyroid cancer. Discussed mechanism of action of the medications. Patient understands and all patients answered to satisfaction of the patient. 04/08/24: BMI 41, Weight 274. Body composition scale shows gain of 6 lb of muscle nad more water retention. Restarted Zepbound 2.5 mg subu cweekly. Will do in office tirzapetide until OOP and coupon for Zepbound are equivalent . 05/14/24: BMI 40, Weight 270 lb. On compounded tirzapetide. Doing well. mild nausea, controlled with zofran. Encouraged more water. SECA scale shows all fat loss. H. Patient will follow up in (4) weeks for weight management Total time spent today was 30 minutes of which greater than 50% was spent on coordinating and counseling Case discussed with collaborating physician Yadira Medina who reviewed the assessment and plan. Chart, medications, labs, vital signs reviewed. Dictation was accomplished with the use of etrigg voice recognition software, prone to medical misidentifications and grammatical errors. This is unintentional and the practitioner does try to identify and correct these, but some could still be present. Please do not hesitate to contact practitioner for clarification. All questions answered to patients satisfaction. Patient verbalized understanding of diagnosis and treatments explained. To call sooner prior to next visit it any questions/concerns arise. 06/20/2024 Vitamin D deficiency (ICD-10 - E55.9) 06/20/2024 Asthma, unspecified asthma severity, unspecified whether complicated, unspecified whether persistent (ICD-10 - J45.909) # Obesity. Pt has gained 40 lb over the past year. Patient is interested in weight loss medication. We have never done a weight consult. Discussed that we need to do a weight consult however in the meantime, we will try submission for Zepbound. Discussed administration and demonstration was showed on how to administer. Storage options including in the fridge. Explained how medication works. Patient is agreeable. If this is not covered, we will try Wegovy.Do not restart until about 2 weeks postsurgery. Patient is also fasting for Ramadan. I recommend that she restarts when she is able to increase her protein intake and do enough water. Patient has pain [id number], we did discuss compounded tears appetite. Protein goals at least 100 g a day as well as our water goal of 80 ounces a day. ASHLEE injection was explained to the patient. All questions answered to patient's satisfaction. Patient has no history of thyroid cancer. Discussed mechanism of action of the medications. Patient understands and all patients answered to satisfaction of the patient. 04/08/24: BMI 41, Weight 274. Body composition scale shows gain of 6 lb of muscle nad more water retention. Restarted Zepbound 2.5 mg subu cweekly. Will do in office tirzapetide until OOP and coupon for Zepbound are equivalent . 05/14/24: BMI 40, Weight 270 lb. On compounded tirzapetide. Doing well. mild nausea, controlled with zofran. Encouraged more water. SECA scale shows all fat loss. 06/20/24: BMI 40, Weigh 264. Pt has not appetite on Tirzapetide 5 mg. Will go back to 2.5 mg for now. Discussed need for adequate protei intake. Body composition scale shows mix of fat and muscle loss. Discussed ways to get higher protein in. # Vaccine: Flu shot given today H. Patient will follow up in (4) weeks for weight management Total time spent today was 30 minutes of which greater than 50% was spent on coordinating and counseling Case discussed with collaborating physician Yadira Medina who reviewed the assessment and plan. Chart, medications, labs, vital signs reviewed. Dictation was accomplished with the use of etrigg voice recognition software, prone to medical misidentifications and grammatical errors. This is unintentional and the practitioner does try to identify and correct these, but some could still be present. Please do not hesitate to contact practitioner for clarification. All questions answered to patients satisfaction. Patient verbalized understanding of diagnosis and treatments explained. To call sooner prior to next visit it any questions/concerns arise. 09/20/2024 BMI 40.0-44.9, adult (ICD-10 - Z68.41) Fernanda is a pleasant 58 year old female with a past medical history of Seasonal allergies, Asthma, Depression, unspecified, Morbid (severe) obesity due to excess calories, and Hyperlipidemia # Influenza A. Tamiflu 75 mg po BID x 5 days. Discussed s/s of infuneza. Work note give. Hydration, rest and antipyretic control. # Asthma: Stable. Denies any coughing or shortness of breath. Currently taking Albuterol Sulfate (2.5 MG/3ML) 0.083% Nebulization as needed. # Depression: PHQ-9 score was greater than 10 at today's visit. In further discussion with Fernanda, she states that she has been feeling depressed, tired, and has suicidal ideations. She states this occurs every winter season due to strained relationship between her and her two older children, who she has very minimal contact with. She currently sees a therapist about 1-2 times per month but states that minimal improvement. She currently is taking duloxetine HCl 20 mg and bupropion HCl ER (XL) 300 mg. She states these medications are beneficial and is helping her at this time. She states that at this time she needs to get past the holidays and states that she will contact the office is she is in need of help or changes to her medications. Discussed the idea of trialing family therapy. Patient is considering the idea at this time. # Obesity. Pt has gained 40 lb over the past year. Patient is interested in weight loss medication. We have never done a weight consult. Discussed that we need to do a weight consult however in the meantime, we will try submission for Zepbound. Discussed administration and demonstration was showed on how to administer. Storage options including in the fridge. Explained how medication works. Patient is agreeable. If this is not covered, we will try Wegovy.Do not restart until about 2 weeks postsurgery. Patient is also fasting for Ramadan. I recommend that she restarts when she is able to increase her protein intake and do enough water. Patient has pain [id number], we did discuss compounded tears appetite. Protein goals at least 100 g a day as well as our water goal of 80 ounces a day. ASHLEE injection was explained to the patient. All questions answered to patient's satisfaction. Patient has no history of thyroid cancer. Discussed mechanism of action of the medications. Patient understands and all patients answered to satisfaction of the patient. 04/08/24: BMI 41, Weight 274. Body composition scale shows gain of 6 lb of muscle nad more water retention. Restarted Zepbound 2.5 mg subu ritchiesteven. Will do in office tirzapetide until OOP and coupon for Zepbound are equivalent . 05/14/24: BMI 40, Weight 270 lb. On compounded tirzapetide. Doing well. mild nausea, controlled with zofran. Encouraged more water. SECA scale shows all fat loss. 06/20/24: BMI 40, Weigh 264. Pt has not appetite on Tirzapetide 5 mg. Will go back to 2.5 mg for now. Discussed need for adequate protei intake. Body composition scale shows mix of fat and muscle loss. Discussed ways to get higher protein in. 08/20/2024: BMI 41.96, weight: 276 lbs. Endorses that she currently takes Zepbound 2.5 mg, noting minimal side effects, but states she does have an increase in appetite. We discussed trialing Zepbound 5 mg again to help with weight loss as her previous weight was about 264 lbs and discussed concern of monitoring side effect symptoms such as decreased appetite, nausea, vomiting, or changes in bowel habits. Will trial Zepbound 5 mg. Will follow up in 4-6 weeks for weight management follow up. Had Zepbound 5 mg at today's visit. Patient consented to Zepbound 5 mg injection at todays visit. # Hyperlipidemia: LDL was elevated at 130. Discussed idea of a statin. Patient declined idea of statin at this time. She endorses trialing lifestyle modifications such as improving exercise and diet. She currently takes Fish Oil 1000 MG. Total time spent today was 30 minutes of which greater than 50% was spent on coordinating and counseling Case discussed with collaborating physician Yadira Medina who reviewed the assessment and plan. Chart, medications, labs, vital signs reviewed. Dictation was accomplished with the use of etrigg voice recognition software, prone to medical misidentifications and grammatical errors. This is unintentional and the practitioner does try to identify and correct these, but some could still be present. Please do not hesitate to contact practitioner for clarification. All questions answered to patients satisfaction. Patient verbalized understanding of diagnosis and treatments explained. To call sooner prior to next visit it any questions/concerns arise. 08/20/2024 Osteoarthritis of knee, unspecified (ICD-10 - M17.9) Fernanda is a pleasant 58 year old female with a past medical history of Seasonal allergies, Asthma, Depression, unspecified, Morbid (severe) obesity due to excess calories, and Hyperlipidemia, presenting to the clinic for a complete physical exam. # Asthma: Stable. Denies any coughing or shortness of breath. Currently taking Albuterol Sulfate (2.5 MG/3ML) 0.083% Nebulization as needed. # Depression: PHQ-9 score was greater than 10 at today's visit. In further discussion with Fernanda, she states that she has been feeling depressed, tired, and has suicidal ideations. She states this occurs every winter season due to strained relationship between her and her two older children, who she has very minimal contact with. She currently sees a therapist about 1-2 times per month but states that minimal improvement. She currently is taking duloxetine HCl 20 mg and bupropion HCl ER (XL) 300 mg. She states these medications are beneficial and is helping her at this time. She states that at this time she needs to get past the holidays and states that she will contact the office is she is in need of help or changes to her medications. Discussed the idea of trialing family therapy. Patient is considering the idea at this time. # Obesity. Pt has gained 40 lb over the past year. Patient is interested in weight loss medication. We have never done a weight consult. Discussed that we need to do a weight consult however in the meantime, we will try submission for Zepbound. Discussed administration and demonstration was showed on how to administer. Storage options including in the fridge. Explained how medication works. Patient is agreeable. If this is not covered, we will try Wegovy.Do not restart until about 2 weeks postsurgery. Patient is also fasting for Ramadan. I recommend that she restarts when she is able to increase her protein intake and do enough water. Patient has pain [id number], we did discuss compounded tears appetite. Protein goals at least 100 g a day as well as our water goal of 80 ounces a day. ASHLEE injection was explained to the patient. All questions answered to patient's satisfaction. Patient has no history of thyroid cancer. Discussed mechanism of action of the medications. Patient understands and all patients answered to satisfaction of the patient. 04/08/24: BMI 41, Weight 274. Body composition scale shows gain of 6 lb of muscle nad more water retention. Restarted Zepbound 2.5 mg danieleu macario. Will do in office tirzapetide until OOP and coupon for Zepbound are equivalent . 05/14/24: BMI 40, Weight 270 lb. On compounded tirzapetide. Doing well. mild nausea, controlled with zofran. Encouraged more water. SECA scale shows all fat loss. 06/20/24: BMI 40, Weigh 264. Pt has not appetite on Tirzapetide 5 mg. Will go back to 2.5 mg for now. Discussed need for adequate protei intake. Body composition scale shows mix of fat and muscle loss. Discussed ways to get higher protein in. 08/20/2024: BMI 41.96, weight: 276 lbs. Endorses that she currently takes Zepbound 2.5 mg, noting minimal side effects, but states she does have an increase in appetite. We discussed trialing Zepbound 5 mg again to help with weight loss as her previous weight was about 264 lbs and discussed concern of monitoring side effect symptoms such as decreased appetite, nausea, vomiting, or changes in bowel habits. Will trial Zepbound 5 mg. Will follow up in 4-6 weeks for weight management follow up. Had Zepbound 5 mg at today's visit. Patient consented to Zepbound 5 mg injection at todays visit. # Hyperlipidemia: LDL was elevated at 130. Discussed idea of a statin. Patient declined idea of statin at this time. She endorses trialing lifestyle modifications such as improving exercise and diet. She currently takes Fish Oil 1000 MG. # Right Shoulder Pain: States having stiffness and feeling overall weak. She states that she has a difficult time lifiting objects above her head due to the pain. She also states having numbness to right thumb. Discussed idea of MRI. She declines at this time. She states she was considering following up with arthritis center. She also states she will consider the idea of the MRI as she states she has a lot on her plate during the holiday's physically and mentally. # Unspecified rash. Upon Physical examination, there appears to be a dry appearing, erythmatous, flat lesion on the posterior aspect of the patient's neck. She states that this portion is itchy. Will trial Tramcinolone Acetonide cream to help with symptomatic relief. Patient agreed to medication. Patient seen and examined. Comprehensive discussion was done on the following. 1. Nutrition: It is important to follow a healthy diet based on lots of vegetables and legumes and good fat. Avoid processed food and processed carbohydrates. Learn to prepare your own meals. Learn to read labels and avoid high fructose corn syrup, processed chemicals added to increase shelf life and preprepared meals. Avoid fast foods. Learn to eat slowly and plan meals for a week. Try to count calories and be mindful off daily calorie intake. Get into the habit of keeping an eye on your weight by using an appropriate scale. Learn to log exercise and discussed fitness Apps like [employer] which can help keep log off calories taken versus calories burned. Local food should be preferred. Discussed Dirty Dozen Versus Clean Fifteen. Discussed healthy supplements like fish oil, Tumeric, Curcumin, Melatonin, Resveratrol, Probiotics, Vitamin-D, Alpha-Lipoic acid, Vitamin-D and coconut oil. 2. It is important to exercise regularly. Is a good habit to walk at least 30-45 minutes a day. Gentle weightlifting with standard precautions to protect the back. Finding activity like cycling or hiking and get into the habit of engaging in it. Stretching before and after the exercises important. It is also important to contact me if there are any problems like shortness of breath, chest pain, back pain and joint or muscle pain associated with the exercise. 3. Discussed age appropriate screening guidelines. Colonoscopy needs to start at age 50 with stool for occult blood as appropriate. There is a new test that can test for genetic abnormalities in the stool sample. This would not replace a colonoscopy but could be used as a screening tool for patients who do not want a colonoscopy. We discussed the importance of early detection of colon cancer. 4. Discussed current guidelines with respect to breast examination, mammogram and pap smear for early detection of breast and cervical cancer. Patient advised to follow up with these appointments. 5. Discussed safe driving and no use of smart phone while driving 6. Age-appropriate immunizations were discussed. A tetanus booster is needed every 10 years. Flu vaccine is recommended every year just before the start of the flu season. Shingles vaccine is recommended after age 50 but not all insurances cover it.Pneumonia vaccine is given after age 65 unless there are certain comorbidities for which it is started earlier. 7. Diagnostic labs were discussed. These could include CBC CMP and lipids with fasting blood glucose and insulin levels. Vitamin D and hemoglobin A1c testing might be appropriate. Will follow up on 09/20/2024 for weight management follow up Total time spent today was 30 minutes of which greater than 50% was spent on coordinating and counseling Case discussed with collaborating physician Yadira Medina who reviewed the assessment and plan. Chart, medications, labs, vital signs reviewed. Dictation was accomplished with the use of etrigg voice recognition software, prone to medical misidentifications and grammatical errors. This is unintentional and the practitioner does try to identify and correct these, but some could still be present. Please do not hesitate to contact practitioner for clarification. All questions answered to patients satisfaction. Patient verbalized understanding of diagnosis and treatments explained. To call sooner prior to next visit it any questions/concerns arise. 08/20/2024 Eczema, unspecified type (ICD-10 - L30.9) Fernanda is a pleasant 58 year old female with a past medical history of Seasonal allergies, Asthma, Depression, unspecified, Morbid (severe) obesity due to excess calories, and Hyperlipidemia, presenting to the clinic for a complete physical exam. # Asthma: Stable. Denies any coughing or shortness of breath. Currently taking Albuterol Sulfate (2.5 MG/3ML) 0.083% Nebulization as needed. # Depression: PHQ-9 score was greater than 10 at today's visit. In further discussion with Fernanda, she states that she has been feeling depressed, tired, and has suicidal ideations. She states this occurs every winter season due to strained relationship between her and her two older children, who she has very minimal contact with. She currently sees a therapist about 1-2 times per month but states that minimal improvement. She currently is taking duloxetine HCl 20 mg and bupropion HCl ER (XL) 300 mg. She states these medications are beneficial and is helping her at this time. She states that at this time she needs to get past the holidays and states that she will contact the office is she is in need of help or changes to her medications. Discussed the idea of trialing family therapy. Patient is considering the idea at this time. # Obesity. Pt has gained 40 lb over the past year. Patient is interested in weight loss medication. We have never done a weight consult. Discussed that we need to do a weight consult however in the meantime, we will try submission for Zepbound. Discussed administration and demonstration was showed on how to administer. Storage options including in the fridge. Explained how medication works. Patient is agreeable. If this is not covered, we will try Wegovy.Do not restart until about 2 weeks postsurgery. Patient is also fasting for Ramadan. I recommend that she restarts when she is able to increase her protein intake and do enough water. Patient has pain [id number], we did discuss compounded tears appetite. Protein goals at least 100 g a day as well as our water goal of 80 ounces a day. ASHLEE injection was explained to the patient. All questions answered to patient's satisfaction. Patient has no history of thyroid cancer. Discussed mechanism of action of the medications. Patient understands and all patients answered to satisfaction of the patient. 04/08/24: BMI 41, Weight 274. Body composition scale shows gain of 6 lb of muscle nad more water retention. Restarted Zepbound 2.5 mg danieleu macario. Will do in office tirzapetide until OOP and coupon for Zepbound are equivalent . 05/14/24: BMI 40, Weight 270 lb. On compounded tirzapetide. Doing well. mild nausea, controlled with zofran. Encouraged more water. SECA scale shows all fat loss. 06/20/24: BMI 40, Weigh 264. Pt has not appetite on Tirzapetide 5 mg. Will go back to 2.5 mg for now. Discussed need for adequate protei intake. Body composition scale shows mix of fat and muscle loss. Discussed ways to get higher protein in. 08/20/2024: BMI 41.96, weight: 276 lbs. Endorses that she currently takes Zepbound 2.5 mg, noting minimal side effects, but states she does have an increase in appetite. We discussed trialing Zepbound 5 mg again to help with weight loss as her previous weight was about 264 lbs and discussed concern of monitoring side effect symptoms such as decreased appetite, nausea, vomiting, or changes in bowel habits. Will trial Zepbound 5 mg. Will follow up in 4-6 weeks for weight management follow up. Had Zepbound 5 mg at today's visit. Patient consented to Zepbound 5 mg injection at todays visit. # Hyperlipidemia: LDL was elevated at 130. Discussed idea of a statin. Patient declined idea of statin at this time. She endorses trialing lifestyle modifications such as improving exercise and diet. She currently takes Fish Oil 1000 MG. # Right Shoulder Pain: States having stiffness and feeling overall weak. She states that she has a difficult time lifiting objects above her head due to the pain. She also states having numbness to right thumb. Discussed idea of MRI. She declines at this time. She states she was considering following up with arthritis center. She also states she will consider the idea of the MRI as she states she has a lot on her plate during the holiday's physically and mentally. # Unspecified rash. Upon Physical examination, there appears to be a dry appearing, erythmatous, flat lesion on the posterior aspect of the patient's neck. She states that this portion is itchy. Will trial Tramcinolone Acetonide cream to help with symptomatic relief. Patient agreed to medication. Patient seen and examined. Comprehensive discussion was done on the following. 1. Nutrition: It is important to follow a healthy diet based on lots of vegetables and legumes and good fat. Avoid processed food and processed carbohydrates. Learn to prepare your own meals. Learn to read labels and avoid high fructose corn syrup, processed chemicals added to increase shelf life and preprepared meals. Avoid fast foods. Learn to eat slowly and plan meals for a week. Try to count calories and be mindful off daily calorie intake. Get into the habit of keeping an eye on your weight by using an appropriate scale. Learn to log exercise and discussed fitness Apps like [employer] which can help keep log off calories taken versus calories burned. Local food should be preferred. Discussed Dirty Dozen Versus Clean Fifteen. Discussed healthy supplements like fish oil, Tumeric, Curcumin, Melatonin, Resveratrol, Probiotics, Vitamin-D, Alpha-Lipoic acid, Vitamin-D and coconut oil. 2. It is important to exercise regularly. Is a good habit to walk at least 30-45 minutes a day. Gentle weightlifting with standard precautions to protect the back. Finding activity like cycling or hiking and get into the habit of engaging in it. Stretching before and after the exercises important. It is also important to contact me if there are any problems like shortness of breath, chest pain, back pain and joint or muscle pain associated with the exercise. 3. Discussed age appropriate screening guidelines. Colonoscopy needs to start at age 50 with stool for occult blood as appropriate. There is a new test that can test for genetic abnormalities in the stool sample. This would not replace a colonoscopy but could be used as a screening tool for patients who do not want a colonoscopy. We discussed the importance of early detection of colon cancer. 4. Discussed current guidelines with respect to breast examination, mammogram and pap smear for early detection of breast and cervical cancer. Patient advised to follow up with these appointments. 5. Discussed safe driving and no use of smart phone while driving 6. Age-appropriate immunizations were discussed. A tetanus booster is needed every 10 years. Flu vaccine is recommended every year just before the start of the flu season. Shingles vaccine is recommended after age 50 but not all insurances cover it.Pneumonia vaccine is given after age 65 unless there are certain comorbidities for which it is started earlier. 7. Diagnostic labs were discussed. These could include CBC CMP and lipids with fasting blood glucose and insulin levels. Vitamin D and hemoglobin A1c testing might be appropriate. Will follow up on 09/20/2024 for weight management follow up Total time spent today was 30 minutes of which greater than 50% was spent on coordinating and counseling Case discussed with collaborating physician Yadira Medina who reviewed the assessment and plan. Chart, medications, labs, vital signs reviewed. Dictation was accomplished with the use of etrigg voice recognition software, prone to medical misidentifications and grammatical errors. This is unintentional and the practitioner does try to identify and correct these, but some could still be present. Please do not hesitate to contact practitioner for clarification. All questions answered to patients satisfaction. Patient verbalized understanding of diagnosis and treatments explained. To call sooner prior to next visit it any questions/concerns arise. 09/20/2024 Osteoarthritis of knee, unspecified (ICD-10 - M17.9) Fernanda is a pleasant 58 year old female with a past medical history of Seasonal allergies, Asthma, Depression, unspecified, Morbid (severe) obesity due to excess calories, and Hyperlipidemia # Influenza A. Tamiflu 75 mg po BID x 5 days. Discussed s/s of infuneza. Work note give. Hydration, rest and antipyretic control. # Asthma: Stable. Denies any coughing or shortness of breath. Currently taking Albuterol Sulfate (2.5 MG/3ML) 0.083% Nebulization as needed. # Depression: PHQ-9 score was greater than 10 at today's visit. In further discussion with Fernanda, she states that she has been feeling depressed, tired, and has suicidal ideations. She states this occurs every winter season due to strained relationship between her and her two older children, who she has very minimal contact with. She currently sees a therapist about 1-2 times per month but states that minimal improvement. She currently is taking duloxetine HCl 20 mg and bupropion HCl ER (XL) 300 mg. She states these medications are beneficial and is helping her at this time. She states that at this time she needs to get past the holidays and states that she will contact the office is she is in need of help or changes to her medications. Discussed the idea of trialing family therapy. Patient is considering the idea at this time. # Obesity. Pt has gained 40 lb over the past year. Patient is interested in weight loss medication. We have never done a weight consult. Discussed that we need to do a weight consult however in the meantime, we will try submission for Zepbound. Discussed administration and demonstration was showed on how to administer. Storage options including in the fridge. Explained how medication works. Patient is agreeable. If this is not covered, we will try Wegovy.Do not restart until about 2 weeks postsurgery. Patient is also fasting for Ramadan. I recommend that she restarts when she is able to increase her protein intake and do enough water. Patient has pain [id number], we did discuss compounded tears appetite. Protein goals at least 100 g a day as well as our water goal of 80 ounces a day. ASHLEE injection was explained to the patient. All questions answered to patient's satisfaction. Patient has no history of thyroid cancer. Discussed mechanism of action of the medications. Patient understands and all patients answered to satisfaction of the patient. 04/08/24: BMI 41, Weight 274. Body composition scale shows gain of 6 lb of muscle nad more water retention. Restarted Zepbound 2.5 mg subu cweekly. Will do in office tirzapetide until OOP and coupon for Zepbound are equivalent . 05/14/24: BMI 40, Weight 270 lb. On compounded tirzapetide. Doing well. mild nausea, controlled with zofran. Encouraged more water. SECA scale shows all fat loss. 06/20/24: BMI 40, Weigh 264. Pt has not appetite on Tirzapetide 5 mg. Will go back to 2.5 mg for now. Discussed need for adequate protei intake. Body composition scale shows mix of fat and muscle loss. Discussed ways to get higher protein in. 08/20/2024: BMI 41.96, weight: 276 lbs. Endorses that she currently takes Zepbound 2.5 mg, noting minimal side effects, but states she does have an increase in appetite. We discussed trialing Zepbound 5 mg again to help with weight loss as her previous weight was about 264 lbs and discussed concern of monitoring side effect symptoms such as decreased appetite, nausea, vomiting, or changes in bowel habits. Will trial Zepbound 5 mg. Will follow up in 4-6 weeks for weight management follow up. Had Zepbound 5 mg at today's visit. Patient consented to Zepbound 5 mg injection at todays visit. # Hyperlipidemia: LDL was elevated at 130. Discussed idea of a statin. Patient declined idea of statin at this time. She endorses trialing lifestyle modifications such as improving exercise and diet. She currently takes Fish Oil 1000 MG. Total time spent today was 30 minutes of which greater than 50% was spent on coordinating and counseling Case discussed with collaborating physician Yadira Medina who reviewed the assessment and plan. Chart, medications, labs, vital signs reviewed. Dictation was accomplished with the use of etrigg voice recognition software, prone to medical misidentifications and grammatical errors. This is unintentional and the practitioner does try to identify and correct these, but some could still be present. Please do not hesitate to contact practitioner for clarification. All questions answered to patients satisfaction. Patient verbalized understanding of diagnosis and treatments explained. To call sooner prior to next visit it any questions/concerns arise. 06/20/2024 Hypothyroidism, unspecified (ICD-10 - E03.9) 05/14/2024 Dietary counseling and surveillance (ICD-10 - Z71.3) # Obesity. Pt has gained 40 lb over the past year. Patient is interested in weight loss medication. We have never done a weight consult. Discussed that we need to do a weight consult however in the meantime, we will try submission for Zepbound. Discussed administration and demonstration was showed on how to administer. Storage options including in the fridge. Explained how medication works. Patient is agreeable. If this is not covered, we will try Wegovy.Do not restart until about 2 weeks postsurgery. Patient is also fasting for Ramadan. I recommend that she restarts when she is able to increase her protein intake and do enough water. Patient has pain [id number], we did discuss compounded tears appetite. Protein goals at least 100 g a day as well as our water goal of 80 ounces a day. ASHLEE injection was explained to the patient. All questions answered to patient's satisfaction. Patient has no history of thyroid cancer. Discussed mechanism of action of the medications. Patient understands and all patients answered to satisfaction of the patient. 04/08/24: BMI 41, Weight 274. Body composition scale shows gain of 6 lb of muscle nad more water retention. Restarted Zepbound 2.5 mg subu cweekly. Will do in office tirzapetide until OOP and coupon for Zepbound are equivalent . 05/14/24: BMI 40, Weight 270 lb. On compounded tirzapetide. Doing well. mild nausea, controlled with zofran. Encouraged more water. SECA scale shows all fat loss. H. Patient will follow up in (4) weeks for weight management Total time spent today was 30 minutes of which greater than 50% was spent on coordinating and counseling Case discussed with collaborating physician Yadira Medina who reviewed the assessment and plan. Chart, medications, labs, vital signs reviewed. Dictation was accomplished with the use of etrigg voice recognition software, prone to medical misidentifications and grammatical errors. This is unintentional and the practitioner does try to identify and correct these, but some could still be present. Please do not hesitate to contact practitioner for clarification. All questions answered to patients satisfaction. Patient verbalized understanding of diagnosis and treatments explained. To call sooner prior to next visit it any questions/concerns arise. 06/20/2024 Dietary counseling and surveillance (ICD-10 - Z71.3) # Obesity. Pt has gained 40 lb over the past year. Patient is interested in weight loss medication. We have never done a weight consult. Discussed that we need to do a weight consult however in the meantime, we will try submission for Zepbound. Discussed administration and demonstration was showed on how to administer. Storage options including in the fridge. Explained how medication works. Patient is agreeable. If this is not covered, we will try Wegovy.Do not restart until about 2 weeks postsurgery. Patient is also fasting for Ramadan. I recommend that she restarts when she is able to increase her protein intake and do enough water. Patient has pain [id number], we did discuss compounded tears appetite. Protein goals at least 100 g a day as well as our water goal of 80 ounces a day. ASHLEE injection was explained to the patient. All questions answered to patient's satisfaction. Patient has no history of thyroid cancer. Discussed mechanism of action of the medications. Patient understands and all patients answered to satisfaction of the patient. 04/08/24: BMI 41, Weight 274. Body composition scale shows gain of 6 lb of muscle nad more water retention. Restarted Zepbound 2.5 mg subu cweekly. Will do in office tirzapetide until OOP and coupon for Zepbound are equivalent . 05/14/24: BMI 40, Weight 270 lb. On compounded tirzapetide. Doing well. mild nausea, controlled with zofran. Encouraged more water. SECA scale shows all fat loss. 06/20/24: BMI 40, Weigh 264. Pt has not appetite on Tirzapetide 5 mg. Will go back to 2.5 mg for now. Discussed need for adequate protei intake. Body composition scale shows mix of fat and muscle loss. Discussed ways to get higher protein in. # Vaccine: Flu shot given today H. Patient will follow up in (4) weeks for weight management Total time spent today was 30 minutes of which greater than 50% was spent on coordinating and counseling Case discussed with collaborating physician Yadira Medina who reviewed the assessment and plan. Chart, medications, labs, vital signs reviewed. Dictation was accomplished with the use of etrigg voice recognition software, prone to medical misidentifications and grammatical errors. This is unintentional and the practitioner does try to identify and correct these, but some could still be present. Please do not hesitate to contact practitioner for clarification. All questions answered to patients satisfaction. Patient verbalized understanding of diagnosis and treatments explained. To call sooner prior to next visit it any questions/concerns arise. 04/08/2024 Dietary counseling and surveillance (ICD-10 - Z71.3) # Obesity. Pt has gained 40 lb over the past year. Patient is interested in weight loss medication. We have never done a weight consult. Discussed that we need to do a weight consult however in the meantime, we will try submission for Zepbound. Discussed administration and demonstration was showed on how to administer. Storage options including in the fridge. Explained how medication works. Patient is agreeable. If this is not covered, we will try Wegovy.Do not restart until about 2 weeks postsurgery. Patient is also fasting for Ramadan. I recommend that she restarts when she is able to increase her protein intake and do enough water. Patient has pain [id number], we did discuss compounded tears appetite. Protein goals at least 100 g a day as well as our water goal of 80 ounces a day. ASHLEE injection was explained to the patient. All questions answered to patient's satisfaction. Patient has no history of thyroid cancer. Discussed mechanism of action of the medications. Patient understands and all patients answered to satisfaction of the patient. 04/08/24: BMI 41, Weight 274. Body composition scale shows gain of 6 lb of muscle nad more water retention. Restarted Zepbound 2.5 mg subu cweekly. Will do in office tirzapetide until OOP and coupon for Zepbound are equivalent . H. Patient will follow up in (4) weeks for weight management Total time spent today was 30 minutes of which greater than 50% was spent on coordinating and counseling Case discussed with collaborating physician Yadira Medina who reviewed the assessment and plan. Chart, medications, labs, vital signs reviewed. Dictation was accomplished with the use of etrigg voice recognition software, prone to medical misidentifications and grammatical errors. This is unintentional and the practitioner does try to identify and correct these, but some could still be present. Please do not hesitate to contact practitioner for clarification. All questions answered to patients satisfaction. Patient verbalized understanding of diagnosis and treatments explained. To call sooner prior to next visit it any questions/concerns arise. 06/20/2024 Encounter for immunization (ICD-10 - Z23) # Obesity. Pt has gained 40 lb over the past year. Patient is interested in weight loss medication. We have never done a weight consult. Discussed that we need to do a weight consult however in the meantime, we will try submission for Zepbound. Discussed administration and demonstration was showed on how to administer. Storage options including in the fridge. Explained how medication works. Patient is agreeable. If this is not covered, we will try Wegovy.Do not restart until about 2 weeks postsurgery. Patient is also fasting for Ramadan. I recommend that she restarts when she is able to increase her protein intake and do enough water. Patient has pain [id number], we did discuss compounded tears appetite. Protein goals at least 100 g a day as well as our water goal of 80 ounces a day. ASHLEE injection was explained to the patient. All questions answered to patient's satisfaction. Patient has no history of thyroid cancer. Discussed mechanism of action of the medications. Patient understands and all patients answered to satisfaction of the patient. 04/08/24: BMI 41, Weight 274. Body composition scale shows gain of 6 lb of muscle nad more water retention. Restarted Zepbound 2.5 mg subu cweekly. Will do in office tirzapetide until OOP and coupon for Zepbound are equivalent . 05/14/24: BMI 40, Weight 270 lb. On compounded tirzapetide. Doing well. mild nausea, controlled with zofran. Encouraged more water. SECA scale shows all fat loss. 06/20/24: BMI 40, Weigh 264. Pt has not appetite on Tirzapetide 5 mg. Will go back to 2.5 mg for now. Discussed need for adequate protei intake. Body composition scale shows mix of fat and muscle loss. Discussed ways to get higher protein in. # Vaccine: Flu shot given today H. Patient will follow up in (4) weeks for weight management Total time spent today was 30 minutes of which greater than 50% was spent on coordinating and counseling Case discussed with collaborating physician Yadira Medina who reviewed the assessment and plan. Chart, medications, labs, vital signs reviewed. Dictation was accomplished with the use of etrigg voice recognition software, prone to medical misidentifications and grammatical errors. This is unintentional and the practitioner does try to identify and correct these, but some could still be present. Please do not hesitate to contact practitioner for clarification. All questions answered to patients satisfaction. Patient verbalized understanding of diagnosis and treatments explained. To call sooner prior to next visit it any questions/concerns arise. 06/20/2024 Encounter for screening for diabetes mellitus (ICD-10 - Z13.1) 09/20/2024 Eczema, unspecified type (ICD-10 - L30.9) Fernanda is a pleasant 58 year old female with a past medical history of Seasonal allergies, Asthma, Depression, unspecified, Morbid (severe) obesity due to excess calories, and Hyperlipidemia # Influenza A. Tamiflu 75 mg po BID x 5 days. Discussed s/s of infuneza. Work note give. Hydration, rest and antipyretic control. # Asthma: Stable. Denies any coughing or shortness of breath. Currently taking Albuterol Sulfate (2.5 MG/3ML) 0.083% Nebulization as needed. # Depression: PHQ-9 score was greater than 10 at today's visit. In further discussion with Fernanda, she states that she has been feeling depressed, tired, and has suicidal ideations. She states this occurs every winter season due to strained relationship between her and her two older children, who she has very minimal contact with. She currently sees a therapist about 1-2 times per month but states that minimal improvement. She currently is taking duloxetine HCl 20 mg and bupropion HCl ER (XL) 300 mg. She states these medications are beneficial and is helping her at this time. She states that at this time she needs to get past the holidays and states that she will contact the office is she is in need of help or changes to her medications. Discussed the idea of trialing family therapy. Patient is considering the idea at this time. # Obesity. Pt has gained 40 lb over the past year. Patient is interested in weight loss medication. We have never done a weight consult. Discussed that we need to do a weight consult however in the meantime, we will try submission for Zepbound. Discussed administration and demonstration was showed on how to administer. Storage options including in the fridge. Explained how medication works. Patient is agreeable. If this is not covered, we will try Wegovy.Do not restart until about 2 weeks postsurgery. Patient is also fasting for Ramadan. I recommend that she restarts when she is able to increase her protein intake and do enough water. Patient has pain [id number], we did discuss compounded tears appetite. Protein goals at least 100 g a day as well as our water goal of 80 ounces a day. ASHLEE injection was explained to the patient. All questions answered to patient's satisfaction. Patient has no history of thyroid cancer. Discussed mechanism of action of the medications. Patient understands and all patients answered to satisfaction of the patient. 04/08/24: BMI 41, Weight 274. Body composition scale shows gain of 6 lb of muscle nad more water retention. Restarted Zepbound 2.5 mg subu cweekly. Will do in office tirzapetide until OOP and coupon for Zepbound are equivalent . 05/14/24: BMI 40, Weight 270 lb. On compounded tirzapetide. Doing well. mild nausea, controlled with zofran. Encouraged more water. SECA scale shows all fat loss. 06/20/24: BMI 40, Weigh 264. Pt has not appetite on Tirzapetide 5 mg. Will go back to 2.5 mg for now. Discussed need for adequate protei intake. Body composition scale shows mix of fat and muscle loss. Discussed ways to get higher protein in. 08/20/2024: BMI 41.96, weight: 276 lbs. Endorses that she currently takes Zepbound 2.5 mg, noting minimal side effects, but states she does have an increase in appetite. We discussed trialing Zepbound 5 mg again to help with weight loss as her previous weight was about 264 lbs and discussed concern of monitoring side effect symptoms such as decreased appetite, nausea, vomiting, or changes in bowel habits. Will trial Zepbound 5 mg. Will follow up in 4-6 weeks for weight management follow up. Had Zepbound 5 mg at today's visit. Patient consented to Zepbound 5 mg injection at todays visit. # Hyperlipidemia: LDL was elevated at 130. Discussed idea of a statin. Patient declined idea of statin at this time. She endorses trialing lifestyle modifications such as improving exercise and diet. She currently takes Fish Oil 1000 MG. Total time spent today was 30 minutes of which greater than 50% was spent on coordinating and counseling Case discussed with collaborating physician Yadira Medina who reviewed the assessment and plan. Chart, medications, labs, vital signs reviewed. Dictation was accomplished with the use of etrigg voice recognition software, prone to medical misidentifications and grammatical errors. This is unintentional and the practitioner does try to identify and correct these, but some could still be present. Please do not hesitate to contact practitioner for clarification. All questions answered to patients satisfaction. Patient verbalized understanding of diagnosis and treatments explained. To call sooner prior to next visit it any questions/concerns arise. 06/20/2024 Anemia due to vitamin B12 deficiency, unspecified B12 deficiency type (ICD-10 - D51.9) 09/20/2024 Dietary counseling (ICD-10 - Z71.3) Fernanda is a pleasant 58 year old female with a past medical history of Seasonal allergies, Asthma, Depression, unspecified, Morbid (severe) obesity due to excess calories, and Hyperlipidemia # Influenza A. Tamiflu 75 mg po BID x 5 days. Discussed s/s of infuneza. Work note give. Hydration, rest and antipyretic control. # Asthma: Stable. Denies any coughing or shortness of breath. Currently taking Albuterol Sulfate (2.5 MG/3ML) 0.083% Nebulization as needed. # Depression: PHQ-9 score was greater than 10 at today's visit. In further discussion with Fernanda, she states that she has been feeling depressed, tired, and has suicidal ideations. She states this occurs every winter season due to strained relationship between her and her two older children, who she has very minimal contact with. She currently sees a therapist about 1-2 times per month but states that minimal improvement. She currently is taking duloxetine HCl 20 mg and bupropion HCl ER (XL) 300 mg. She states these medications are beneficial and is helping her at this time. She states that at this time she needs to get past the holidays and states that she will contact the office is she is in need of help or changes to her medications. Discussed the idea of trialing family therapy. Patient is considering the idea at this time. # Obesity. Pt has gained 40 lb over the past year. Patient is interested in weight loss medication. We have never done a weight consult. Discussed that we need to do a weight consult however in the meantime, we will try submission for Zepbound. Discussed administration and demonstration was showed on how to administer. Storage options including in the fridge. Explained how medication works. Patient is agreeable. If this is not covered, we will try Wegovy.Do not restart until about 2 weeks postsurgery. Patient is also fasting for Ramadan. I recommend that she restarts when she is able to increase her protein intake and do enough water. Patient has pain [id number], we did discuss compounded tears appetite. Protein goals at least 100 g a day as well as our water goal of 80 ounces a day. ASHLEE injection was explained to the patient. All questions answered to patient's satisfaction. Patient has no history of thyroid cancer. Discussed mechanism of action of the medications. Patient understands and all patients answered to satisfaction of the patient. 04/08/24: BMI 41, Weight 274. Body composition scale shows gain of 6 lb of muscle nad more water retention. Restarted Zepbound 2.5 mg subu cweekly. Will do in office tirzapetide until OOP and coupon for Zepbound are equivalent . 05/14/24: BMI 40, Weight 270 lb. On compounded tirzapetide. Doing well. mild nausea, controlled with zofran. Encouraged more water. SECA scale shows all fat loss. 06/20/24: BMI 40, Weigh 264. Pt has not appetite on Tirzapetide 5 mg. Will go back to 2.5 mg for now. Discussed need for adequate protei intake. Body composition scale shows mix of fat and muscle loss. Discussed ways to get higher protein in. 08/20/2024: BMI 41.96, weight: 276 lbs. Endorses that she currently takes Zepbound 2.5 mg, noting minimal side effects, but states she does have an increase in appetite. We discussed trialing Zepbound 5 mg again to help with weight loss as her previous weight was about 264 lbs and discussed concern of monitoring side effect symptoms such as decreased appetite, nausea, vomiting, or changes in bowel habits. Will trial Zepbound 5 mg. Will follow up in 4-6 weeks for weight management follow up. Had Zepbound 5 mg at today's visit. Patient consented to Zepbound 5 mg injection at todays visit. # Hyperlipidemia: LDL was elevated at 130. Discussed idea of a statin. Patient declined idea of statin at this time. She endorses trialing lifestyle modifications such as improving exercise and diet. She currently takes Fish Oil 1000 MG. Total time spent today was 30 minutes of which greater than 50% was spent on coordinating and counseling Case discussed with collaborating physician Yadira Medina who reviewed the assessment and plan. Chart, medications, labs, vital signs reviewed. Dictation was accomplished with the use of etrigg voice recognition software, prone to medical misidentifications and grammatical errors. This is unintentional and the practitioner does try to identify and correct these, but some could still be present. Please do not hesitate to contact practitioner for clarification. All questions answered to patients satisfaction. Patient verbalized understanding of diagnosis and treatments explained. To call sooner prior to next visit it any questions/concerns arise. 09/20/2024 Obesity, morbid, BMI 40.0-49.9 (ICD-10 - E66.01) Fernanda is a pleasant 58 year old female with a past medical history of Seasonal allergies, Asthma, Depression, unspecified, Morbid (severe) obesity due to excess calories, and Hyperlipidemia # Influenza A. Tamiflu 75 mg po BID x 5 days. Discussed s/s of infuneza. Work note give. Hydration, rest and antipyretic control. # Asthma: Stable. Denies any coughing or shortness of breath. Currently taking Albuterol Sulfate (2.5 MG/3ML) 0.083% Nebulization as needed. # Depression: PHQ-9 score was greater than 10 at today's visit. In further discussion with Fernanda, she states that she has been feeling depressed, tired, and has suicidal ideations. She states this occurs every winter season due to strained relationship between her and her two older children, who she has very minimal contact with. She currently sees a therapist about 1-2 times per month but states that minimal improvement. She currently is taking duloxetine HCl 20 mg and bupropion HCl ER (XL) 300 mg. She states these medications are beneficial and is helping her at this time. She states that at this time she needs to get past the holidays and states that she will contact the office is she is in need of help or changes to her medications. Discussed the idea of trialing family therapy. Patient is considering the idea at this time. # Obesity. Pt has gained 40 lb over the past year. Patient is interested in weight loss medication. We have never done a weight consult. Discussed that we need to do a weight consult however in the meantime, we will try submission for Zepbound. Discussed administration and demonstration was showed on how to administer. Storage options including in the fridge. Explained how medication works. Patient is agreeable. If this is not covered, we will try Wegovy.Do not restart until about 2 weeks postsurgery. Patient is also fasting for Ramadan. I recommend that she restarts when she is able to increase her protein intake and do enough water. Patient has pain [id number]-[id number], we did discuss compounded tears appetite. Protein goals at least 100 g a day as well as our water goal of 80 ounces a day. ASHLEE injection was explained to the patient. All questions answered to patient's satisfaction. Patient has no history of thyroid cancer. Discussed mechanism of action of the medications. Patient understands and all patients answered to satisfaction of the patient. 04/08/24: BMI 41, Weight 274. Body composition scale shows gain of 6 lb of muscle nad more water retention. Restarted Zepbound 2.5 mg danieleu macario. Will do in office tirzapetide until OOP and coupon for Zepbound are equivalent . 05/14/24: BMI 40, Weight 270 lb. On compounded tirzapetide. Doing well. mild nausea, controlled with zofran. Encouraged more water. SECA scale shows all fat loss. 06/20/24: BMI 40, Weigh 264. Pt has not appetite on Tirzapetide 5 mg. Will go back to 2.5 mg for now. Discussed need for adequate protei intake. Body composition scale shows mix of fat and muscle loss. Discussed ways to get higher protein in. 08/20/2024: BMI 41.96, weight: 276 lbs. Endorses that she currently takes Zepbound 2.5 mg, noting minimal side effects, but states she does have an increase in appetite. We discussed trialing Zepbound 5 mg again to help with weight loss as her previous weight was about 264 lbs and discussed concern of monitoring side effect symptoms such as decreased appetite, nausea, vomiting, or changes in bowel habits. Will trial Zepbound 5 mg. Will follow up in 4-6 weeks for weight management follow up. Had Zepbound 5 mg at today's visit. Patient consented to Zepbound 5 mg injection at todays visit. # Hyperlipidemia: LDL was elevated at 130. Discussed idea of a statin. Patient declined idea of statin at this time. She endorses trialing lifestyle modifications such as improving exercise and diet. She currently takes Fish Oil 1000 MG. Total time spent today was 30 minutes of which greater than 50% was spent on coordinating and counseling Case discussed with collaborating physician Yadira Medina who reviewed the assessment and plan. Chart, medications, labs, vital signs reviewed. Dictation was accomplished with the use of etrigg voice recognition software, prone to medical misidentifications and grammatical errors. This is unintentional and the practitioner does try to identify and correct these, but some could still be present. Please do not hesitate to contact practitioner for clarification. All questions answered to patients satisfaction. Patient verbalized understanding of diagnosis and treatments explained. To call sooner prior to next visit it any questions/concerns arise. 09/20/2024 Cough, unspecified type (ICD-10 - R05.9) Fernanda is a pleasant 58 year old female with a past medical history of Seasonal allergies, Asthma, Depression, unspecified, Morbid (severe) obesity due to excess calories, and Hyperlipidemia # Influenza A. Tamiflu 75 mg po BID x 5 days. Discussed s/s of infuneza. Work note give. Hydration, rest and antipyretic control. # Asthma: Stable. Denies any coughing or shortness of breath. Currently taking Albuterol Sulfate (2.5 MG/3ML) 0.083% Nebulization as needed. # Depression: PHQ-9 score was greater than 10 at today's visit. In further discussion with Fernanda, she states that she has been feeling depressed, tired, and has suicidal ideations. She states this occurs every winter season due to strained relationship between her and her two older children, who she has very minimal contact with. She currently sees a therapist about 1-2 times per month but states that minimal improvement. She currently is taking duloxetine HCl 20 mg and bupropion HCl ER (XL) 300 mg. She states these medications are beneficial and is helping her at this time. She states that at this time she needs to get past the holidays and states that she will contact the office is she is in need of help or changes to her medications. Discussed the idea of trialing family therapy. Patient is considering the idea at this time. # Obesity. Pt has gained 40 lb over the past year. Patient is interested in weight loss medication. We have never done a weight consult. Discussed that we need to do a weight consult however in the meantime, we will try submission for Zepbound. Discussed administration and demonstration was showed on how to administer. Storage options including in the fridge. Explained how medication works. Patient is agreeable. If this is not covered, we will try Wegovy.Do not restart until about 2 weeks postsurgery. Patient is also fasting for Ramadan. I recommend that she restarts when she is able to increase her protein intake and do enough water. Patient has pain vgn-je-jxgaak, we did discuss compounded tears appetite. Protein goals at least 100 g a day as well as our water goal of 80 ounces a day. ASHLEE injection was explained to the patient. All questions answered to patient's satisfaction. Patient has no history of thyroid cancer. Discussed mechanism of action of the medications. Patient understands and all patients answered to satisfaction of the patient. 04/08/24: BMI 41, Weight 274. Body composition scale shows gain of 6 lb of muscle nad more water retention. Restarted Zepbound 2.5 mg subu macario. Will do in office tirzapetide until OOP and coupon for Zepbound are equivalent . 05/14/24: BMI 40, Weight 270 lb. On compounded tirzapetide. Doing well. mild nausea, controlled with zofran. Encouraged more water. SECA scale shows all fat loss. 06/20/24: BMI 40, Weigh 264. Pt has not appetite on Tirzapetide 5 mg. Will go back to 2.5 mg for now. Discussed need for adequate protei intake. Body composition scale shows mix of fat and muscle loss. Discussed ways to get higher protein in. 08/20/2024: BMI 41.96, weight: 276 lbs. Endorses that she currently takes Zepbound 2.5 mg, noting minimal side effects, but states she does have an increase in appetite. We discussed trialing Zepbound 5 mg again to help with weight loss as her previous weight was about 264 lbs and discussed concern of monitoring side effect symptoms such as decreased appetite, nausea, vomiting, or changes in bowel habits. Will trial Zepbound 5 mg. Will follow up in 4-6 weeks for weight management follow up. Had Zepbound 5 mg at today's visit. Patient consented to Zepbound 5 mg injection at todays visit. # Hyperlipidemia: LDL was elevated at 130. Discussed idea of a statin. Patient declined idea of statin at this time. She endorses trialing lifestyle modifications such as improving exercise and diet. She currently takes Fish Oil 1000 MG. Total time spent today was 30 minutes of which greater than 50% was spent on coordinating and counseling Case discussed with collaborating physician Yadira Medina who reviewed the assessment and plan. Chart, medications, labs, vital signs reviewed. Dictation was accomplished with the use of etrigg voice recognition software, prone to medical misidentifications and grammatical errors. This is unintentional and the practitioner does try to identify and correct these, but some could still be present. Please do not hesitate to contact practitioner for clarification. All questions answered to patients satisfaction. Patient verbalized understanding of diagnosis and treatments explained. To call sooner prior to next visit it any questions/concerns arise. PLAN OF TREATMENT Pending Test Test Name Order Date LIPID PANEL, STANDARD 10/01/2021 LIPID PANEL, STANDARD 04/19/2022 LIPID PANEL, STANDARD 01/24/2023 LIPID PANEL, STANDARD 06/20/2024 COMPREHENSIVE METABOLIC PANEL 06/20/2024 COMPREHENSIVE METABOLIC PANEL 01/24/2023 COMPREHENSIVE METABOLIC PANEL 04/19/2022 CBC (INCLUDES DIFF/PLT) 01/24/2023 CBC (INCLUDES DIFF/PLT) 04/19/2022 CBC (INCLUDES DIFF/PLT) 06/20/2024 URINALYSIS, COMPLETE 06/20/2024 URINALYSIS, COMPLETE 01/24/2023 URINALYSIS, COMPLETE 04/19/2022 HEMOGLOBIN A1c 04/19/2022 HEMOGLOBIN A1c 01/24/2023 HEMOGLOBIN A1c 06/20/2024 VITAMIN B12 04/19/2022 VITAMIN B12 06/20/2024 T4, FREE 04/19/2022 TSH 01/24/2023 TSH 04/19/2022 TSH W/REFLEX TO FT4 06/20/2024 VITAMIN D,25-OH,TOTAL,IA 04/19/2022 VITAMIN D,25-OH,TOTAL,IA 10/01/2021 VITAMIN D,25-OH,TOTAL,IA 06/20/2024 Insurance Providers Payer Name Payer Address Payer Phone Subscriber Number Group Number Insured Name Patient Relationship to Insured Coverage Start Date Coverage End Date [facility] [address] [place] [address] [id number] FERNANDA WEBB Self - patient is the insured MEDICATIONS ADMINISTERED Medication Instructions Date of Administration Dosage Notes Tirzepatide 04/25/2024 2.5 mg Tirzepatide 05/02/2024 5 mg Tirzepatide 05/09/2024 5 mg Tirzepatide 05/16/2024 5.0 mg R tricep SQ Tirzepatide 05/23/2024 5 mg Tirzepatide 05/30/2024 5 mg Tirzepatide 06/06/2024 5 mg Tirzepatide 06/14/2024 5 mg Tirzepatide 06/20/2024 2.5 mg Tirzepatide 06/27/2024 2.5 mg Tirzepatide 07/04/2024 2.5 mg Tirzepatide 07/11/2024 2.5 mg Tirzepatide 07/18/2024 2.5 mg Tirzepatide 07/25/2024 2.5 mg Tirzepatide 08/01/2024 2.5 mg Tirzepatide 08/08/2024 2.5 mg Tirzepatide 08/14/2024 2.5 mg Tirzepatide 08/20/2024 5 mg lot# [id number] 5mg Tirzepatide 08/27/2024 5.0 mg Tirzepatide 09/03/2024 5 mg Tirzepatide 09/20/2024 5 mg lot# [id number] 5mg Tirzepatide 09/26/2024 5 mg MEDICAL (GENERAL) HISTORY Medical History History ICD Code Seasonal allergies J30.2 Asthma J45.909 Depression, unspecified F32.A Morbid (severe) obesity due to excess ca lories E66.01 Hyperlipidemia E78.5 Surgical History Surgery Date(Month/Year) gastric sleeve knee replacement (L) hysterectomy gall bladder removed Knee replacement (R) 11/2023
--- OUTSIDE RECORDS SUMMARY | 2025-01-07 15:00 | XMS_ITS ---
Author Organization [facility] Address [address] [place] [address] Care Team Providers Care Bailing Machine Operator Name Role Phone SLIMSCOTTY MannEN Unavailable [phone] KEENAN MEDINA [phone] Encounters Encounter Location Date Provider Diagnosis [facility] [address] [place] [address] 10/17/2024 KEENAN MEDINA PLAN OF TREATMENT No Information Progress Notes * FERNANDA WEBBEDOB:[birth year] (59 yo F)Acc No.[id number]:10/17/2024 Patient:??FERNANDA WEBB Provider:??Keenan Medina MD :[id number]?Age:59 Y?Sex:Fe male Date:10/17/2024 Address:[address] [place], [place] [id number] Subjective: * Chief Complaints: * ? * Medical History:?? Objective: Assessment: Plan: * Treatment: * Images: Billing Information: * Visit Code:?? * Procedure Codes:?? * Sign off status: Pending * Provider:??Keenan Medina MD Date:??10/17
--- OUTSIDE RECORDS SUMMARY | 2025-01-07 15:00 | XMS_ITS | Clinical Summary ---
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 Active calcium carbonate-vitam in D3 600 mg-5 mcg (200 unit) per tablet Take by mouth 2 Times Daily. Active celecoxib (CeleBREX) 100 mg capsule Take 100 mg by mouth daily. Active fluticasone propionate (FLONASE) 50 mcg/actuation nasal spray 2 Sprays by Each Nare route daily. Active HYDROmorphone (DILAUDID) 4 mg tablet Take 4 mg by mouth as needed. Active montelukast (SINGULAIR) 10 mg tablet Take 10 mg by mouth at bedtime. Active nystatin (MYCOSTATIN) 100,000 unit/gram powder APPLY TO AFFECTED AREA EVERY DAY 3 Active nystatin, bulk, 10 billion unit powder 1 Each by Does not apply route daily. 0 Active polyethylene glycol 3350 (GLYCOLAX ORAL) Empty 8oz of miralax into 128 ounces (1 gallon ) of gatorade, mix well. Follow instructions given by office. 1 Active sertraline (ZOLOFT) 100 mg tablet Take 100 mg by mouth daily. Active traMADoL (ULTRAM) 50 mg tablet Take 50 mg by mouth every 6 hours as needed. Active wheat dextrin (Benefiber Clear SF, dextrin,) 3 gram/3.5 gram powder in packet Take 4 g by mouth daily. 0 Active naltrexone HCl (NALTREXONE ORAL) Take 3 mg by mouth. Active bisacodyL 5 mg tablet Take 4 tablets by mouth right before your first dose of liquid prep. 1 Active UNABLE TO FIND Collagen OR Take 1 Scoop by mouth daily Active duloxetine HCl (DULOXETINE ORAL) Take 100 mg by mouth daily. Active glucosamine abny-byivn-5-vi t E 500-400-5 mg-mg-unit capsule Take by mouth. Acti ve pantoprazole (PROTONIX) 40 mg EC tablet TAKE 1 TABLET DAILY 90 tablet 3 5 Active Active Problems Problem Noted Date Diagnosed Date Asthma 10/14/2024 Allergic rhinitis 03/14/2019 Anxiety and depression 03/14/2019 GERD (gastroesophageal reflux disease) 9 Hyperlipidemia 03/14/2019 Osteoarthritis of knees, bilateral 03/14/2019 Pre-diabetes 03/14/2019 Class 3 severe obesity due t o excess calories with body mass index (BMI) of 40.0 to 44.9 in adult Encounters Date Type Department Care Team Description 10/10/2024 Telephone Bariatric Surgery - [address] [place] [address] Shireen Foreman RN from Last 3 Months Surgical History Surgery Date Site/Laterality Comments SECTION PROCEDURE: HISTORICAL CARPAL TUNNEL RELEASE PROCEDURE: HISTORICAL CARPAL TUNNEL REL CHOLECYSTECTOMY PROCEDURE: HISTORICAL CHOLECYSTECTOMY OTHER SURGICAL HISTORY PROCEDURE: HISTORY OTHER; COMMENT: core biopsy COLONOSCOPY 01/03/2019 PROCEDURE: HISTORICAL COLONOSCOPY COLONOSCOPY 10/22/2015 PROCEDURE: HISTORICAL COLONOSCOPY; COMMENT: Colon cancer ion first degree relatives ESOPHAGOGASTRODUODENOSCOPY 01/03/2019 PROCEDURE: [place] ESOPHAGOGASTRODUODENOSCOPY TRANSORAL DIAGNOSTIC OTHER SURGICAL HISTORY PROCEDURE: [...] (BMI) of 50.0 to 59.9 in adult 03/07/2019 DX:Class 3 severe obesity du e to excess calories with serious comorbidity and body mass index (BMI) of 50.0 to 59.9 in adult (HCC) GERD (gastroesophageal reflux disease) 03/14/2019 DX:GERD (gastroesophageal [...] drink = 0.6 oz pur e alcohol) Comments Unknown Sex and Gender Information Value Date Recorded Sex Assigned at Not on file Legal Sex Female 5:17 AM EST Gender Identity Not on file Sexual Orientation [...] 07/25/2023 8:10 AM EST Plan of Treatment Health Maintenance Due Date Last Done Comments Breast Cancer Screening 1965 DTaP,Tdap,and Td Vaccines (1 - Tdap) 1983 Pneumococcal Vaccine: 50+ Ye ars (1 of 2 - PCV) 1983 Pneumococcal Vaccine: Pediat rics (0 to 5 Years) and At-Risk Patients (6 to 64 Years) (1 of 2 - PCV) 1983 Cervical Cancer Screening: P ap Smear 1985 Zoster Vaccines (1 of 2) 2014 Depression Screening 08/27/2022 HIV Screening 08/27/2022 Hepatitis C Screening 08/27/2022 Social Influencers of Health Screening 08/27/2022 Cholesterol Screening (Lipid Panel) 05/03/2024 05/03/2019 COVID-19 Vaccine ( - 2023-2 5 season) 2024 RSV Immunization Adult Patie nts (1 - Risk 60-74 years 1-dose series) 2024 Influenza Vaccine (Season Ended) 2025 Colorectal Cancer Screening: Colonoscopy 06/22/2026 06/22/2021 HIB Vaccines Aged Out No longer eligi [...] patient's age to complete this topic Meningococcal B Vaccine Aged Out No l onger eligible based on patient's age to complete this topic RSV Immunization Patients Un fiona 20 months Aged Out No longer eligible b ased on patient's age to complete this topic Varicella Vaccines Aged Out No longer eligible based on patient's age to complete this topic Procedures Procedure Name Priority Date/Time Associated Diagnosis Comments COLONOSCOPY Routine 06/22/2021 LIPID PANEL Routine 05/03/2019 from Last 3 Months or Most Recently Relevant to Health Maintenance Results * Colonoscopy (06/22/2021) Pathologist [facility] Colonoscopy no interpretation , abstracted Anatomical Region Laterality Modality Other us Historical Provider MD HEALTH MAINTENANCE Final Result * (ABNORMAL) Lipid panel (05/03/2019) Pathologist [facility] LDL/HDL Ratio 5(A) 0 - 4 Triglycerides 219(A) 0 - 150 mg/dL Cholesterol 219(A) 0 - 200 mg/dL HDL 41 >=40 mg/dL LDL Cholesterol 135(A) 0 - 100 mg/dL Blood Venous blood specimen / Unknown us Historical Provider LAB BLOOD ORDERABLES Ema l Result from Last 3 Months or Most Recently Relevant to Health Maintenance Insurance [facility] Care Teams Any Commodity Sales Deliverer Relationship Specialty Start Date End Date Rae Medina MD [address] [place] [address] PCP - General Internal Medicine 10/21/24
== END 2025-01-07 13:20 | disposition home or self-care (01) ==
LOC: HO.RHES 12:37
PROVIDERS: PCP Internal Medicine; Visit Provider Internal Medicine Rheumatology
DX: M25.511 Pain in right shoulder (principal); G89.29 Other chronic pain; M19.011 Primary osteoarthritis, right shoulder
CPT/HCPCS: 99213

== ENCOUNTER → 2025-01-07 12:37 | Outpatient (BNVA) | payer BC, SELFPAY | PROVIDERS: PCP Internal Medicine; Visit Provider Internal Medicine Rheumatology ==

== ENCOUNTER 2025-05-22 14:24 | Outpatient (AMB) | payer BC, SELFPAY ==
--- OUTSIDE RECORDS SUMMARY | 2024-10-03 07:30 | XMS_ITS ---
Author Organization [facility] [address] Address [address] [place] [address] Care Team Providers Care Town Justice Name Role Phone LASHAWN SMALLS Unavailable [phone] JUANIS MEDINA Unavailable [phone] Encounters Encounter Location Date Provider Diagnosis [facility] [address] [place] [address] 10/03/2024 JUANIS MEDINA Plan Of Treatment No Information Progress Notes * FERNANDA WEBBEDOB:[birth year] (59 yo F)Acc No.[id number]:10/03/2024 Patient: Irene HSU FERNANDA MARIO Provider: Yadira Medina MD :1965 A ge:59 Y S ex:Female Date:10/03/2024 Address:[address] [place], [place] [id number] Subjective: * Chief Complaints: * * Medical History: Objective: * Vitals: Assessment: Plan: * Treatment: * Images: Billing Information: * Visit Code: * Procedure Codes: * Electronic signature of OMAR MEDINA MD on 05/22/2025 at 03:45 PM EDT Sign off status: Pending * Provider: Yadira Medina MD Date: 10/03/2024 Generated for Zunilda saez/Gloria/Markitting on: 0 05/22/2025 03:45 PM EDT
--- OUTSIDE RECORDS SUMMARY | 2024-10-10 07:30 | XMS_ITS ---
Author Organization [facility] [address] Address [address] [place] [address] Care Team Providers Care Assistant To The Ceo Name Role Phone LASHAWN SMALLS Unavailable [phone] JUANIS MEDINA Unavailable [phone] Encounters Encounter Location Date Provider Diagnosis [facility] [address] [place] [address] 10/10/2024 JUANIS MEDINA Plan Of Treatment No Information Progress Notes * FERNANDA WEBBEDOB:[birth year] (59 yo F)Acc No.[id number]:10/10/2024 Patient: Irene HSU FERNANDA MARIO Provider: Yadira Medina MD :1965 A ge:59 Y S ex:Female Date:10/10/2024 Address:[address] [place], [place] [phone] Subjective: * Chief Complaints: * * Medical History: Objective: * Vitals: Assessment: Plan: * Treatment: * Images: Billing Information: * Visit Code: * Procedure Codes: * Electronic signature of OMAR MEDINA MD on 05/22/2025 at 03:44 PM EDT Sign off status: Pending * Provider: Yadira Medina MD Date: 10/10/2024 Generated for Zunilda saez/Gloria/Markitting on: 05/22/2025 03:44 PM EDT
--- OUTSIDE RECORDS SUMMARY | 2024-10-17 07:30 | XMS_ITS ---
Author Organization [facility] [address] Address [address] [place] [address] Care Team Providers Care Pantry Goods Worker Name Role Phone LASHAWN SMALLS Unavailable [phone] JUANIS MEDINA Unavailable [phone] Encounters Encounter Location Date Provider Diagnosis [facility] [address] [place] [address] 10/17/2024 JUANIS MEDINA Plan Of Treatment No Information Progress Notes * FERNANDA WEBBEDOB:[birth year] (59 yo F)Acc No.[id number]:10/17/2024 Patient: Irene HSU FERNANDA MARIO Provider: Yadira Medina MD :1965 A ge:59 Y S ex:Female Date:10/17/2024 Address:[address] [place], [place] [phone] Subjective: * Chief Complaints: * * Medical History: Objective: * Vitals: Assessment: Plan: * Treatment: * Images: Billing Information: * Visit Code: * Procedure Codes: * Electronic signature of OMAR MEDINA MD on 05/22/2025 at 03:45 PM EDT Sign off status: Pending * Provider: Yadira Medina MD Date: 10/17/2024 Generated for Zunilda saez/Glorai/Markitting on: 05/22/2025 03:45 PM EDT
--- OUTSIDE RECORDS SUMMARY | 2024-10-24 07:30 | XMS_ITS ---
Author Organization [facility] [address] Address [address] [place] [address] Care Team Providers Care Amphibious Operations Officer Name Role Phone LASHAWN SMALLS Unavailable [phone] JUANIS MEDINA Unavailable [phone] Encounters Encounter Location Date Provider Diagnosis [facility] [address] [place] [address] 10/24/2024 JUANIS MEDINA Plan Of Treatment No Information Progress Notes * FERNANDA WEBBEDOB:[birth year] (59 yo F)Acc No.[id number]:10/24/2024 Patient: Irene HSU FERNANDA MARIO Provider: Yadira Medina MD :1965 A ge:59 Y S ex:Female Date:10/24/2024 Address:[address] [place], [place] [phone] Subjective: * Chief Complaints: * * Medical History: Objective: * Vitals: Assessment: Plan: * Treatment: * Images: Billing Information: * Visit Code: * Procedure Codes: * Electronic signature of OMAR MEDINA MD on 05/22/2025 at 03:45 PM EDT Sign off status: Pending * Provider: Yadira Medina MD Date: 10/24/2024 Generated for Zunilda saez/Gloria/Markitting on: 0 05/22/2025 03:45 PM EDT
--- OUTSIDE RECORDS SUMMARY | 2024-10-31 06:45 | XMS_ITS ---
Author Organization [facility] [address] Address [address] [place] [address] Care Team Providers Care Electric Fork Operator Name Role Phone LASHAWN SMALLS Unavailable [phone] Encounters Encounter Location Date Provider Diagnosis [facility] [address] [place] [address] 10/31/2024 LASHAWN SMALLS Plan Of Treatment No Information Progress Notes * FERNANDA WEBBOB:[birth year] (59 yo F)Acc No.[id number]:10/31/2024 Patient: Irene HAMMFERNANDA RAHMAN Provider: Amberly SMALLS PA-C :1965 A ge:59 Y S ex:Female Date:10/31/2024 Address:[address] [place], [place] [id number] Subjective: * Chief Complaints: * * Medical History: Objective: * Vitals: Assessment: Plan: * Treatment: * Images: Billing Information: * Visit Code: * Procedure Codes: * Electronic signature of SCOTTY SMALLS PA-C on 05/22/2025 at 03:45 PM EDT Sign off status: Pending * Provider: Amberly SMALLS PA-C Date: 0 10/31/2024 Generated for Zunilda saez/Gloria/Sj on: 0 05/22/2025 03:45 PM EDT
[2025-05-22 14:28] VITALS: BP 126/70; PULSE 88; O2SAT 98; BMI 35.1
--- NOTE | 2025-05-22 14:28 | A.OFFVIS_ITS ---
Vital Signs 05/22/25 14:28 Height 5 ft 9 in Weight 237 lb 7.005 oz BMI 35.1 BP 126/70 Blood Pressure Location Lt brachial Position Sitting Pulse 88 Pulse Source Pulse Oximeter Pulse Oximetry (%) 98 Oxygen Delivery Method Room Air Intake Visit Reasons: cortisone injection/ right shoulder Intake Note: Patient presents with Arthritis and for a cortisone injection Allergies environmental allergies Allergy (Mild, Verified 05/22/25 14:29) sneezing, itchy, watery eyes Latex, Natural Rubber Allergy (Mild, Verified 05/22/25 14:29) Rash dust mites Allergy (Mild, Uncoded 10/08/24 12:51) Sneezing molds Allergy (Unknown, Uncoded 10/08/24 12:51) Unknown HPI HPI cortisone injection/ right shoulder: Details: Pain started in March. She has limited range of motion. She is using Tylenol 650 mg at bedtime and if she needs it in the morning due to pain she will take another dose. [facility] Medical History delivery delivered Surgical History H/O: hysterectomy History of total right knee replacement History of total left knee replacement S/P gastric sleeve procedure S/P cholecystectomy H/O colonoscopy H/O hernia repair Family History Father Colon cancer Mother Osteoarthritis Sister Colon cancer Social History Household Members: Spouse and Children Alcohol intake: never Patient Tobacco Use Status: Never used Tobacco Physical Exam Vital Signs: Last Vital Signs Pulse 88 05/22/25 14:28 BP 126/70 05/22/25 14:28 Pulse Ox 98 05/22/25 14:28 Oxygen Delivery Method Room Air 05/22/25 14:28 BMI result Body Mass Index 35.1 Office Procedures AMB Joint Injection/Aspiration Joint Injection/Aspiration Details: Right shoulder joint Prep: site was prepped using aseptic technique Injected: 40 mg of, Kenalog, with 1 mL of and 1% plain lidocaine Procedure: Informed verbal consent was obtained. The patient tolerated the procedure well. Postprocedure protocol was discussed with patient. Procedure: The patient tolerated the procedure well Coding - Large joint Procedure code (CPT) selection complete Office Meds lidocaine (PF) 10 mg/mL (1 %) injection solution Performing Provider: Brett Mckeon MD Performing Location: [facility] Administered by: Brett Mckeon MD on 05/22/25 14:47 Dose Route Admin Location Dispensed Lot Number Expiration Date [facility] [employer] 10 mg Infiltration 2 mL [id number] 12/16/26 43402-555-88 [facility] Total Dispensed Waste 2 mL 50 % Kenalog 40 mg/mL suspension for injection Performing Provider: Brett Mckeon MD Performing Location: [facility] Administered by: Brett Mckeon MD on 05/22/25 14:47 Dose Route Admin Location Dispensed Lot Number Expiration Date [facility] [employer] 40 mg intra-articular 1 mL [id number] 04/17/26 [address]-8 [employer] Total Dispensed Waste 1 mL 0 % Assessment & Plan Assessment & Plan (1) Right shoulder pain: Comment: Due to glenohumeral joint osteoarthritis. Recurrent. Last cortisone injection was September 2024. She has failed PT and Tylenol in the past. Code(s): M25.511 - Pain in right shoulder Category: Medical Qualifiers: Chronicity: chronic Qualified Code(s): M25.511 - Pain in right shoulder; G89.29 - Other chronic pain Plan: Patient received right shoulder cortisone injection this visit Avoid oral NSAIDs in setting of gastric sleeve surgery Continue Tylenol as needed Continue exercises learned from physical therapy daily and stretching before using the pool Return to clinic as needed. She will call office if pain returns for urgent appointment for cortisone injection (2) Osteoarthritis of right glenohumeral joint: Code(s): M19.011 - Primary osteoarthritis, right shoulder Category: Medical Plan: See above Orders: Orders AMB Joint Injection/Aspiration 05/22/25 M19.011 - Primary osteoarthritis, right shoulder Coding Level of Care Code Est Pt Level 3 (46725) Complex EM visit Add On G2211 Diagnoses Chronic right shoulder pain M25.511; G89.29 Chronicity: chronic Osteoarthritis of right glenohumeral joint M19.011 CPT Codes Coding - Large joint: 40206 - Large joint ([id number])
--- OUTSIDE RECORDS SUMMARY | 2025-05-22 15:45 | XMS_ITS | Clinical Summary ---
Author Organization [address] [facility] Address [address] [place] [address] Phone Care Team Providers Care Department Secretary Name Role Phone Rae Medina MD Primary Care Provider [phone] Allergies Active Allergy Reactions Criticality Noted Date [...] 100 mg by mouth daily. Active glucosamine stet-ykiad-1-vi t E 500-400-5 mg-mg-unit capsule Take by mouth. Activ e pantoprazole (PROTONIX) 40 mg EC tablet TAKE [...] (BMI) of 40.0 to 44.9 in adult ([facility] V24, [facility] V28) Surgical History Surgery Date Site/Laterality Comments SECTION PROCEDURE: HISTORICAL CARPAL TUNNEL RELEASE PROCEDURE: HISTORICAL CARPAL TUNNEL REL CHOLECYSTECTOMY PROCEDURE: HISTORICAL CHOLECYSTECTOMY OTHER SURGICAL HISTORY PROCEDURE: HISTORY OTHER; COMMENT: core biopsy COLONOSCOPY 01/03/2019 PROCEDURE: HISTORICAL COLONOSCOPY COLONOSCOPY 10/22/2015 PROCEDURE: HISTORICAL COLONOSCOPY; COMMENT: Colon cancer ion first degree relatives ESOPHAGOGASTRODUODENOSCOPY 01/03/2019 PROCEDURE: [place] ESOPHAGOGASTRODUODENOSCOPY TRANSORAL DIAGNOSTIC OTHER SURGICAL HISTORY PROCEDURE: [...] 59.9 in adult ([facility] V24, [facility] V28) 03/07/2019 DX:Class 3 severe obesity due to excess calories with serious comorbidity and body mass index (BMI) of 50.0 to 59.9 in adult ([facility]) GERD (gastroesophageal reflux disease) 03/14/2019 DX:GERD [...] Sign Reading Time Taken Comments Blood Pressure 118/77 01/14/2025 2:26 PM EDT Pulse 92 01/14/2025 2:26 PM EDT Temperature - - Respiratory Rate - - Oxygen Saturation - - Inhaled Oxygen Concentration - - Weight 116 kg (256 lb 6.4 oz) 01/14/2025 2:26 PM EDT Height 172.7 cm (5' 8 ) 01/14/2025 2:26 PM EDT Body Mass Index 38.99 01/14/2025 2:26 PM EDT Plan of Treatment Health Maintenance Due Date Last Done Comments Breast Cancer Screening 1965 DTaP,Tdap,and Td Vaccines (1 - Tdap) 1983 Pneumococcal Vaccine: 50+ Ye ars (1 of 2 - PCV) 1983 Cervical Cancer Screening: P ap Smear 1985 Zoster Vaccines (1 of 2) 2014 HIV Screening 08/27/2022 Hepatitis C Screening 08/27/2022 Social Influencers of Health Screening 08/27/2022 Cholesterol Screening (Lipid Panel) 05/03/2024 05/03/2019 RSV Immunization Adult Patie nts (1 - Risk 60-74 years 1-dose series) 2024 Depression Screening 09/18/2024 COVID-19 Vaccine (1 - 2023-2 5 season) 2025 Influenza Vaccine (#1) 2025 Colorectal Cancer Screening: Colonoscopy 06/22/2026 06/22/2021 [...] to Health Maintenance Results * Colonoscopy (06/22/2021) [facility] Colonoscopy no interpretation , abstracted Anatomical Region Laterality Modality Other Historical Provider HEALTH MAINTENANCE Final Result * (ABNORMAL) Lipid panel (05/03/2019) Pathologist [facility] LDL/HDL Ratio 5(A) 0 - 4 Triglycerides 219(A) 0 - 150 mg/dL Cholesterol 219(A) 0 - 200 mg/dL HDL 41 >=40 mg/dL LDL Cholesterol 135(A) 0 - 100 mg/dL Blood Venous blood specimen / Unknown Historical Provider LAB BLOOD ORDERABLES Ema l Result from Last 3 Months or Most Recently Relevant to Health Maintenance Insurance [facility] Care Teams Department Secretary Relationship Specialty Start Date End Date Rae Medina MD [address] [place] [address] PCP - General Internal Medicine 10/21/24
--- OUTSIDE RECORDS SUMMARY | 2025-05-22 15:46 | XMS_ITS | Patient Health Record ---
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, [place], Phone - [phone], Director - Isa Notes/Report: Cholesterol, Total 207 100-199 mg/dL Triglycerides 134 0-149 mg/dL HDL Cholesterol 53 >39 mg/dL VLDL Cholesterol Joao 24 5-40 mg/dL LDL Chol Calc ([facility]) 130 0-99 mg/dL Vitamin D, 15-[id number] Reviewed date:08/19/2024 08:02:50 AM Interpretation: Performing Lab:[facility], [employer] [facility], [place], Phone - [phone], Director - Isa Notes/Report: Vitamin D, 25-Hydroxy 32.5 30.0-100.0 ng/mL Vitamin D deficiency has been defined by the [place] [employer] and an Endocrine Society practice guideline as a level of serum 25-OH vitamin D less than 20 ng/mL (1,2). The Endocrine Society went on to further define vitamin D insufficiency as a level between 21 and 29 ng/mL (2). 1. IOM ([place] of [employer]). 2010. Dietary reference intakes for calcium and D. [place]: The National Academies Press. 2. Fiordaliza MF, Paige BLACK, Lakeshia BARNES, et al. Evaluation, treatment, and prevention of vitamin D deficiency: an Endocrine Society clinical practice guideline. JCEM. 2010; 96(7):1911-30. Urinalysis, Complete-[id number] Reviewed date:08/19/2024 08:02:58 AM Interpretation: Performing Lab:[facility] [place], [address] [place] [address], Phone - [phone], Director - Isa Notes/Report: Specific [place] 1.028 1.005-1.030 pH 5.5 5.0-7.5 Urine-Color Yellow [...] (non renal) 0-10 0 - 10 /hpf Casts None seen None seen /lpf Bacteria None seen None seen/Few Yeast Present None seen Vitamin [id number] Reviewed date:08/19/2024 08:02:50 AM Interpretation: Performing Lab:[facility] [address], Phone - [phone], Director - Isa Notes/Report: Vitamin B12 431 867-4610 pg/mL Hemoglobin [id number] Reviewed date:08/19/2024 08:02:50 AM Interpretation: Performing Lab:[facility] [address], [place], Phone - [phone], Director - Isa Notes/Report: Hemoglobin A1c 5.6 4.8-5.6 % . Prediabetes: 5.7 - 6.4 Diabetes: >6.4 Glycemic control for adults with diabetes: <7.0 Comp. Metabolic Panel (14)-3 Reviewed date:08/19/2024 08:02:58 AM Interpretation: Performing Lab:[facility] [place], [address] [facility], Phone - [phone], Director - Isa Notes/Report: Glucose 88 70-99 [...] 0-40 IU/L ALT (SGPT) 14 0-32 IU/L CBC With Differential/Platel et-[id number] Reviewed date:08/19/2024 08:02:58 AM Interpretation: Performing Lab:[facility] [place], [address] [facility], [place], Phone - [phone], Director - Isa Notes/Report: WBC 4.7 3.4-10.8 x10E3/uL Effective August 19, 2024 profile [id number] WBC will be made non-orderable as a [...] Estab. % Basos 1 Not Estab. % Neutrophils (Absolute) 3.0 1.4-7.0 x10E3/uL Lymphs (Absolute) 1.2 0.7-3.1 x10E3/uL Monocytes(Absolute) 0.3 0.1-0.9 x10E3/uL Eos (Absolute) 0.1 0.0-0.4 x10E3/uL Baso (Absolute) 0.0 0.0-0.2 x10E3/uL Immature Granulocytes 0 Not Estab. % Immature Grans (Abs) 0.0 0.0-0.1 x10E3/uL Reason For Referral No Information Medications Medication SIG (Take, Route, Frequency, Duration) Notes Start Date End Date Status Fish Oil 1000 MG 1 capsule Orally Onc e a day Active Nystatin 047726 UNIT/ML 4 mL Mouth/Throa t Four times a day; Duration: 14 days 12/21/2023 Active Fluconazole 100 MG 1 tablet Orally deni y; Duration: 10 days 12/21/2023 Active Flonase Active Zepbound 5 MG/0.5ML 0.5 mL Subcutaneous weekly; Duration: 30 days 08/20/2024 Active Nabumetone 500 MG Oral; Duration: 45 Days Active buPROPion HCl ER (XL) 300 mg TAKE 1 TABLET DAILY IN THE MORNING Active Montelukast Sodium 10 mg TAKE 1 TABLET DAILY Active DULoxetine HCl 20 mg TAKE 1 CAPSULE TWIC E A DAY Active Oseltamivir Phosphate 75 MG 1 capsule Or ally Twice a day; Duration: 5 days 09/20/2024 Active Albuterol Sulfate (2.5 MG/3ML) 0.083% 3 mL Inhalation NEEDED; Duration: 30 days Active guaiFENesin ER 600 MG 1 tablet as needed Orally every 12 hrs; Duration: 10 days 09/20/2024 Active Pantoprazole Sodium 40 MG 1 tablet Orall y Once a day Active Benzonatate 200 MG 1 cap Orally Three times a day; Duration: 10 days As needed cough 09/20/2024 Active Tylenol Active Triamcinolone Acetonide 0.025 % 1 application Externally TWICE DAILY; Duration: 30 days 08/20/2024 Active Immunizations Vaccine Route Administration Date Status Comme nts COVID 19 VACCINE IM Intramuscular 07/14/2023 Administered influenza IM Intramuscular 05/30/2023 Administered influenza IM Intramuscular 06/20/2024 Administered SHINGRIX IM Intramuscular 10/19/2023 Administered Social History Tobacco Use: Social History Observation Description Date Details (start date - stop date) Never Smoker NA - NA Tobacco Use/Smoking Question Answer Notes Are you [...] 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 Problems Problem Type SNOMED Code ICD Code Onset Dates Problem Status W/U Status Risk Notes Problem Vitamin B>12< deficiency anaemia (37780903) Vitamin B12 deficiency anemia, unspecified (D51.9) Active confirmed Problem Hypothyroidism (13663402) Hypothyroidism, unspecified (E03.9) Active confirmed Problem Vitamin D deficiency (81235185) Vitamin D deficiency, unspecified (E55.9) Active confirmed Problem Obesity (639637286) Obesity, unspecified (E66.9) Active confirmed Problem Hyperlipidemia (56993430) Hyperlipidemia, unspecified (E78.5) Active confirmed Problem Insomnia disorder related to another mental disorder (67486937) Insomnia due to other mental disorder (F51.05) Active confirmed Problem Osteoarthritis of knee (928966610) Osteoarthritis of knee, unspecified (M17.9) Active confirmed Problem Diabetes mellitus screening (477699163) Encounter for screening for diabetes mellitus (Z13.1) Active confirmed Problem Lipid screening (306620333) Encounter for screening for lipoid disorders (Z13.220) Active confirmed Problem Morbid obesity (641916624) Morbid obesity (E66.01) Active confirmed Problem Hyperlipidaemia (02424518) Hyperlipidemia, unspecified hyperlipidemia type (E78.5) Active confirmed Problem Anxiety (66230745) Anxiety (F41.9) Active confi rmed Problem Dizziness (511098803) Dizziness (R42) Active confirmed Problem Depressive disorder (disorder) (64419213) Depression, unspecified depression type (F32.9) Active confirmed Problem Annual health maintenance examination (30816613) Annual physical exam (Z00.00) Active confirmed Problem Vitamin D deficiency (87784765) Vitamin D deficiency (E55.9) Active confirmed Problem Body mass index 40+ - morbidly obese (028940365) BMI 40.0-44.9, adult (Z68.41) Active confirmed Problem Obesity (944108555) Obesity (BMI 30-39.9) (E66.9) Active confirmed Problem Body mass index 30.00 to 34.99 (308245560279903) Body mass index [BMI] 32.0-32.9, adult (Z68.32) Active confirmed Problem Dyslipidemia (636620274) Dyslipidemia (E78.5) Active confirmed Problem Asthma without status asthmaticus (66896164) Asthma, unspecified asthma severity, unspecified whether complicated, unspecified whether persistent (J45.909) Active confirmed Problem Benign paroxysmal positional vertigo (743229197) Benign paroxysmal positional vertigo, unspecified laterality (H81.10) Active confirmed Problem Morbid obesity (576956340) Obesity, morbid, BMI 40.0-49.9 (E66.01) Active confirmed Problem Vitamin B>12< deficiency anaemia (18430624) Anemia due to vitamin B12 deficiency, unspecified B12 deficiency type (D51.9) Active confirmed Problem Body mass index 30.00 to 34.99 (009524892523054) BMI 31.0-31.9,adult (Z68.31) Active confirmed Problem Hyperlipidemia (31788992) Hyperlipidemia (E78.5) Active confirmed Vital Signs Heart Rate 115 /min 09/20/2024 Oximetry 95 % 09/20/2024 Blood pressure diastolic 78 mm Hg 09/20/2024 Height 68 in 09/20/2024 Blood pressure systolic 126 mm Hg 09/20/2024 Weight 267.3 lbs 09/20/2024 BMI 40.64 kg/m2 09/20/2024 Encounters Encounter Location Date Provider Diagnosis [facility] [address] [place] [address] 05/23/2024 TALAL MEDINA [facility] [address] [place] [address] 05/30/2024 TALAL MEDINA [facility] [address] [place] [address] 06/06/2024 TALAL MEDINA [facility] [address] [place] [address] 06/14/2024 TALAL MEDINA [facility] [address] [place] [address] 06/27/2024 TALAL MEDINA [facility] [address] [place] [address] 07/04/2024 TALAL MEDINA [facility] [address] [place] [address] 07/11/2024 TALAL MEDINA [facility] [address] [place] [address] 07/18/2024 TALAL MEDINA [facility] [address] [place] [address] 07/25/2024 TALAL MEDINA [facility] [address] [place] [address] 08/01/2024 TALAL MEDINA [facility] [address] [place] [address] 08/08/2024 TALAL MEDINA [facility] [address] [place] [address] 08/14/2024 TALAL MEDINA [facility] [address] [place] [address] 08/27/2024 TALAL MEDINA [facility] [address] [place] [address] 09/03/2024 TALAL MEDINA [facility] [address] [place] [address] 09/12/2024 TALAL MEDINA [facility] [address] [place], [place] 09/26/[address]UANIS MEDINA [facility] [address] [place], [place] 06/20/2024 LASHAWN SMALLS Morbid obesity E66.0 1 ; BMI 40.0-44.9, adult Z68.41 ; Hyperlipidemia, unspecified E78.5 ; Asthma, unspecified asthma severity, unspecified whether complicated, unspecified whether persistent J45.909 ; Dietary counseling and surveillance Z71.3 and Encounter for immunization Z23 [facility] [address] [place], [place] 08/20/2024 LASHAWN SMALLS Adult general medica l exam Z00.00 ; Hyperlipidemia, unspecified E78.5 ; BMI 40.0-44.9, adult Z68.41 ; Osteoarthritis of knee, unspecified M17.9 and Eczema, unspecified type L30.[address] [place], [place] 09/20/2024 LASHAWN SMALLS Close exposure to 2019-nCoV Z20.822 ; Influenza A J10.1 ; Hyperlipidemia, unspecified E78.5 ; BMI 40.0-44.9, adult Z68.41 ; Osteoarthritis of knee, unspecified M17.9 ; Eczema, unspecified type L30.9 ; Dietary counseling Z71.3 ; Obesity, morbid, BMI 40.0-49.9 E66.01 and Cough, unspecified type R05.9 [facility] [address] [place], [place] 06/20/2024 LASHAWN SMALLS Annual physical exam Z00.00 ; Hyperlipidemia, unspecified E78.5 ; Vitamin D deficiency E55.9 ; Hypothyroidism, unspecified E03.9 ; Encounter for screening for diabetes mellitus Z13.1 and Anemia due to vitamin B12 deficiency, unspecified B12 deficiency type D51.9 [facility] [address] [place] [phone] 09/20/2024 LASHAWN SMALLS Assessments Encounter Date Diagnosis (ICD Code) Assessment Notes Treatment Notes Treatment Clinical Notes Section Notes 06/20/2024 Annual physical exam (ICD-10 - Z00.00) 08/20/2024 Hyperlipidemia, unspecified (ICD-10 - E78.5) Aster is a pleasant 58 year old female [...] at today's visit. In further discussion with Aster, she states that she has been feeling [...] and do enough water. Patient has pain poa-ww-xptgeo, we did discuss compounded tears appetite. Protein [...] log exercise and discussed fitness Apps like [employer] which can help keep log off calories [...] Dictation was accomplished with the use of [employer] voice recognition software, prone to medical misidentifications [...] Adult general medical exam (ICD-10 - Z00.00) Aster is a pleasant 58 year old female [...] at today's visit. In further discussion with Aster, she states that she has been feeling [...] and do enough water. Patient has pain vyy-el-lgquop, we did discuss compounded tears appetite. Protein [...] log exercise and discussed fitness Apps like [employer] which can help keep log off calories [...] counseling Case discussed with collaborating physician Yadira Meidna who reviewed the assessment and plan. Chart, medications, labs, vital signs reviewed. Dictation was accomplished with the use of [employer] voice recognition software, prone to medical misidentifications [...] Close exposure to 2019-nCoV (ICD-10 - Z20.822) Aster is a pleasant 58 year old female [...] at today's visit. In further discussion with Aster, she states that she has been feeling [...] and do enough water. Patient has pain kcp-sw-ehlwtc, we did discuss compounded tears appetite. Protein [...] Dictation was accomplished with the use of [employer] voice recognition software, prone to medical misidentifications [...] arise. 09/20/2024 Influenza A (ICD-10 - J10.1) Aster is a pleasant 58 year old female [...] at today's visit. In further discussion with Aster, she states that she has been feeling [...] and do enough water. Patient has pain qmq-ho-rsirrm, we did discuss compounded tears appetite. Protein [...] Dictation was accomplished with the use of [employer] voice recognition software, prone to medical misidentifications [...] and do enough water. Patient has pain awz-cc-tvzbwn, we did discuss compounded tears appetite. Protein [...] Dictation was accomplished with the use of [employer] voice recognition software, prone to medical misidentifications [...] and do enough water. Patient has pain mre-wh-vmcqja, we did discuss compounded tears appetite. Protein [...] Dictation was accomplished with the use of [employer] voice recognition software, prone to medical misidentifications [...] and do enough water. Patient has pain qti-zy-kmevct, we did discuss compounded tears appetite. Protein [...] Dictation was accomplished with the use of [employer] voice recognition software, prone to medical misidentifications [...] 08/20/2024 BMI 40.0-44.9, adult (ICD-10 - Z68.41) Aster is a pleasant 58 year old female [...] at today's visit. In further discussion with Aster, she states that she has been feeling [...] and do enough water. Patient has pain xnu-wj-ivlooc, we did discuss compounded tears appetite. Protein [...] log exercise and discussed fitness Apps like [employer] which can help keep log off calories [...] Dictation was accomplished with the use of [employer] voice recognition software, prone to medical misidentifications [...] arise. 09/20/2024 Hyperlipidemia, unspecified (ICD-10 - E78.5) Aster is a pleasant 58 year old female [...] at today's visit. In further discussion with Aster, she states that she has been feeling [...] and do enough water. Patient has pain ahm-ms-ikgxnq, we did discuss compounded tears appetite. Protein [...] water retention. Restarted Zepbound 2.5 mg subu cweehema. Will do in office tirzapetide until OOP [...] Dictation was accomplished with the use of [employer] voice recognition software, prone to medical misidentifications [...] arise. 06/20/2024 Hyperlipidemia, unspecified (ICD-10 - E78.5) 08/20/2024 Osteoarthritis of knee, unspecified (ICD-10 - M17.9) Aster is a pleasant 58 year old female [...] at today's visit. In further discussion with Aster, she states that she has been feeling [...] and do enough water. Patient has pain zdt-ts-kismnu, we did discuss compounded tears appetite. Protein [...] log exercise and discussed fitness Apps like [employer] which can help keep log off calories [...] Dictation was accomplished with the use of [employer] voice recognition software, prone to medical misidentifications [...] 06/20/2024 Vitamin D deficiency (ICD-10 - E55.9) 09/20/2024 BMI 40.0-44.9, adult (ICD-10 - Z68.41) Aster is a pleasant 58 year old female [...] at today's visit. In further discussion with Aster, she states that she has been feeling [...] and do enough water. Patient has pain ysf-oo-cdhzyb, we did discuss compounded tears appetite. Protein [...] Dictation was accomplished with the use of [employer] voice recognition software, prone to medical misidentifications [...] next visit it any questions/concerns arise. 06/20/2024 Asthma, unspecified asthma severity, unspecified whether [...] and do enough water. Patient has pain gks-ll-wsrywd, we did discuss compounded tears appetite. Protein [...] and coupon for Zepbound are equivalent . 8/27/24: BMI 40, Weight 270 lb. On compounded [...] Dictation was accomplished with the use of [employer] voice recognition software, prone to medical misidentifications [...] and do enough water. Patient has pain dnq-vu-kttbpw, we did discuss compounded tears appetite. Protein [...] Dictation was accomplished with the use of [employer] voice recognition software, prone to medical misidentifications [...] Osteoarthritis of knee, unspecified (ICD-10 - M17.9) Aster is a pleasant 58 year old female [...] at today's visit. In further discussion with Aster, she states that she has been feeling [...] and do enough water. Patient has pain kgc-il-amlwbk, we did discuss compounded tears appetite. Protein [...] Dictation was accomplished with the use of [employer] voice recognition software, prone to medical misidentifications [...] 08/20/2024 Eczema, unspecified type (ICD-10 - L30.9) Aster is a pleasant 58 year old female [...] at today's visit. In further discussion with Aster, she states that she has been feeling [...] and do enough water. Patient has pain ipl-ek-zphila, we did discuss compounded tears appetite. Protein [...] log exercise and discussed fitness Apps like [employer] which can help keep log off calories [...] Dictation was accomplished with the use of [employer] voice recognition software, prone to medical misidentifications [...] arise. 06/20/2024 Hypothyroidism, unspecified (ICD-10 - E03.9) 06/20/2024 Encounter for screening for diabetes mellitus (ICD-10 - Z13.1) 06/20/2024 Encounter for immunization (ICD-10 - Z23) [...] and do enough water. Patient has pain qth-xv-vrqnyr, we did discuss compounded tears appetite. Protein [...] Dictation was accomplished with the use of [employer] voice recognition software, prone to medical misidentifications [...] next visit it any questions/concerns arise. 09/20/2024 Eczema, unspecified type (ICD-10 - L30.9) Aster is a pleasant 58 year old female [...] at today's visit. In further discussion with Aster, she states that she has been feeling [...] and do enough water. Patient has pain sgw-di-nsylup, we did discuss compounded tears appetite. Protein [...] Dictation was accomplished with the use of [employer] voice recognition software, prone to medical misidentifications [...] next visit it any questions/concerns arise. 09/20/2024 Dietary counseling (ICD-10 - Z71.3) Aster is a pleasant 58 year old female [...] at today's visit. In further discussion with Aster, she states that she has been feeling [...] and do enough water. Patient has pain hmd-ny-swwklv, we did discuss compounded tears appetite. Protein [...] Dictation was accomplished with the use of [employer] voice recognition software, prone to medical misidentifications [...] B12 deficiency type (ICD-10 - D51.9) 09/20/2024 Obesity, morbid, BMI 40.0-49.9 (ICD-10 - E66.01) Aster is a pleasant 58 year old female [...] at today's visit. In further discussion with Aster, she states that she has been feeling [...] and do enough water. Patient has pain pow-dl-tpiuym, we did discuss compounded tears appetite. Protein [...] Dictation was accomplished with the use of [employer] voice recognition software, prone to medical misidentifications [...] 09/20/2024 Cough, unspecified type (ICD-10 - R05.9) Aster is a pleasant 58 year old female [...] at today's visit. In further discussion with Aster, she states that she has been feeling [...] and do enough water. Patient has pain azn-av-vvreno, we did discuss compounded tears appetite. Protein [...] Dictation was accomplished with the use of [employer] voice recognition software, prone to medical misidentifications and grammatical errors. This is unintentional and the practitioner does try to identify and correct these, but some could still be present. Please do not hesitate to contact practitioner for clarification. All questions answered to patients satisfaction. Patient verbalized understanding of diagnosis and treatments explained. To call sooner prior to next visit it any questions/concerns arise. Plan Of Treatment Pending Test Test Name Order Date LIPID PANEL, STANDARD 06/20/2024 LIPID PANEL, STANDARD 01/24/2023 LIPID PANEL, STANDARD 04/19/2022 LIPID PANEL, STANDARD 10/01/2021 COMPREHENSIVE METABOLIC PANEL 04/19/2022 COMPREHENSIVE METABOLIC PANEL 01/24/2023 COMPREHENSIVE METABOLIC PANEL 06/20/2024 CBC (INCLUDES DIFF/PLT) 06/20/2024 CBC (INCLUDES DIFF/PLT) 01/24/2023 CBC (INCLUDES DIFF/PLT) 04/19/2022 URINALYSIS, COMPLETE 01/24/2023 URINALYSIS, COMPLETE 04/19/2022 URINALYSIS, COMPLETE 06/20/2024 HEMOGLOBIN A1c 01/24/2023 HEMOGLOBIN A1c 06/20/2024 HEMOGLOBIN A1c 04/19/2022 VITAMIN B12 06/20/2024 VITAMIN B12 04/19/2022 T4, FREE 04/19/2022 TSH 04/19/2022 TSH 01/24/2023 TSH W/REFLEX TO FT4 06/20/2024 VITAMIN D,25-OH,TOTAL,IA 06/20/2024 VITAMIN D,25-OH,TOTAL,IA 04/19/2022 VITAMIN D,25-OH,TOTAL,IA 10/01/2021 Insurance Providers Payer Name Payer Address Payer Phone Subscriber Number Group Number Insured Name Patient Relationship to Insured Coverage Start Date Coverage End Date [facility] [address] [place] [address] [id number] ASTER WEBB Self - patient is the insured Medications Administered Medication Instructions Date of Administration Dosage Notes [...] 2.5 mg Tirzepatide 08/20/2024 5 mg lot# [id number] 5mg Tirzepatide 08/27/2024 5.0 mg Tirzepatide 09/03/2024 5 mg Tirzepatide 09/20/2024 5 mg lot# [id number] 5mg Tirzepatide 09/26/2024 5 mg Medical (General) History Medical History History ICD Code Seasonal allergies J30.2 Asthma J45.909 Depression, unspecified F32.A Morbid (severe) obesity due to excess ca lories E66.01 Hyperlipidemia E78.5 Surgical History Surgery Date(Month/Year) gastric sleeve knee replacement (L) hysterectomy gall bladder removed Knee replacement (R) 11/2023
== END 2025-05-22 14:45 | disposition home or self-care (01) ==
LOC: HO.RHES 14:24
PROVIDERS: PCP Internal Medicine; Visit Provider Internal Medicine Rheumatology
DX: M19.011 Primary osteoarthritis, right shoulder (principal); G89.29 Other chronic pain
CPT/HCPCS: 20610; 99213

== ENCOUNTER → 2025-05-22 14:24 | Outpatient (BNVA) | payer BC, SELFPAY | PROVIDERS: PCP Internal Medicine; Visit Provider Internal Medicine Rheumatology | DX: M19.011 Primary osteoarthritis, right shoulder (principal); M25.511 Pain in right shoulder; G89.29 Other chronic pain | CPT/HCPCS: 20610; J2003; J3301 ==